=== PATIENT | female | born 1990 | race Caucasian/White ===

== ENCOUNTER 2018-05-04 09:17 | Inpatient (IN) | payer OTHER ==
[2018-05-04] MEDS ORDERED: ACETAMINOPHEN 325 MG TABLET (FP) PO ONE (10:18)
[2018-05-04] MEDS ORDERED: SODIUM CHLORIDE 1,000 ML IV STA ×2 (10:18→17:16)
--- NOTE | 2018-05-04 10:27 | PDOC ---
History of Present Illness - General Chief Complaint: Pain Stated Complaint: ABDOMINAL PAIN/FEVER Time Seen by Provider: 05/04/18 09:54 History Source: Patient - History of Present Illness Timing/Duration: reports: intermittent Quality: reports: severe Abdominal Pain Onset Location: reports: other (mid abd) Pain Radiation: reports: no radiation Past History - Past Medical History Allergies/Adverse Reactions: Allergies Allergy/AdvReac Type Severity Reaction Status Date / Time No Known Allergies Allergy Verified 05/04/18 09:28 Home Medications: Ambulatory Orders Acetaminophen [Tylenol -] 500 mg PO BID 05/04/18 Ciprofloxacin HCl [Cipro] 500 mg PO BID 05/04/18 Famotidine [Pepcid] 40 mg PO DAILY 05/04/18 COPD: No - Reproductive History Is Patient Now?: No (#): 2 Para: 0 Cervical CA: No Dysfunctional Uterine Bleeding: No Ectopic : No Endometrial CA: No Polycystic Ovaries: No Therapeutic (s) & number: No Tubal Ligation: No Spontaneous : 2 - Suicide/Smoking/Psychosocial Hx Smoking History: Never smoked Review of Systems - Review of Systems Constitutional: Yes: Fever Respiratory: No: Cough, Shortness of Breath Cardiac (ROS): No: Chest Pain ABD/GI: Yes: Constipated, Abdominal cramping. No: Blood Streaked Bowels, Diarrhea, Nausea, Rectal Bleeding, Vomiting : No: Burning, Dysuria, Discharge, Flank Pain, Hematuria *Physical Exam - Vital Signs Last Vital Signs Temp Pulse Resp BP Pulse Ox 100.0 F H 134 H 20 107/61 98 05/04/18 09:25 05/04/18 09:25 05/04/18 09:25 05/04/18 09:25 05/04/18 09:25 - Physical Exam General Appearance: Yes: Appropriately Dressed. No: Apparent Distress HEENT: positive: Normal Voice Neck: positive: Supple Respiratory/Chest: negative: Respiratory Distress Cardiovascular: positive: Tachycardia Female Pelvic Exam: positive: cervical os closed, discharge (mod amount milky white dc, no odor), adnexal tenderness (?minimal ttp to L adnexa). negative: CMT Gastrointestinal/Abdominal: positive: Normal Bowel Sounds, Soft. negative: Tender, Distended, Guarding, Rebound Musculoskeletal: negative: CVA Tenderness Integumentary: positive: Dry, Warm Neurologic: positive: Fully Oriented, Alert, Normal Mood/Affect ED Treatment Course - LABORATORY CBC & Chemistry Diagram: 05/04/18 10:34 05/04/18 10:34 - RADIOLOGY Radiology Studies Ordered: Category Date Time Status ABDOMEN & PELVIS CT WITH CONTR [CT] Stat CT Scan 05/04/18 10:18 Ordered Medical Decision Making - Medical Decision Making 05/04/18 10:22 27-year-old female, denies any past medical history, here with abdominal pain and fever. Patient states she started having mid bilateral abdominal pain that started 2 months ago while she was vacationing in the [place]. Also had a fever for 102 then. States she was seen in the ER in the [facility] and given medication for the fever, but states she did not have any blood work or imaging done in ER and no clear diagnosis. Patient states since then she has continued to have similar pain that patient describes as both pressure and "like someone sticking me from the inside". Denies any acute change in her bowel movements, but states she suffers from chronic constipation and only move her bowels once every several days. No bright red blood per rectum, melena or diarrhea. Patient also denies any nausea, vomiting, dysuria, vaginal discharge or odor. States pain worsened yesterday and was seen at [facility] and found to have fever of 102. Had negative blood work and urine, but started on Cipro for unclear reasons per patient and has since taken 2 doses. Also given prescription for Pepcid and Tylenol. States she was feeling a little better when she left ER yesterday afternoon but last night abd pain returned w/ chills and decided to come back to the ED today See exam Intermittent abd pain w/ fever x 2 month s/p neg w/u in [facility] yesterday but on cipro for ? reasons per pt, no imaging done yesterday Low grade fever w/ tachycardia today w/ benign abd -tylenol -IVF -labs -CT 05/04/18 13:46 Leukocytosis of 16, rest of labs and UA otherwise neg.CT a/p negative for any signs of acute infection with possible tiny non-obstructive right renal stone and focal low attenuation density in the left hepatic lobe that may need ultrasound for further evaluation. Labs and CT report discussed with patient who continues to complain of pain. Morphine in progress. After further history taking, patient now admits that she was admitted and treated for PID at [facility] 2 years ago with chlamydia on culture. Is sexually active with longtime male partner. States she presented very similarly with prior PID but that sxs more severe this time. Denies vag discharge, odor at this time. Will perform pelvic exam and send patient for ultrasound at this time 05/04/18 14:40 Pelvic exam w/ ? minimal tenderness to palpation to left adnexa. There is also moderate amount of milky white discharge. Patient continues to complain of mid abdominal pain despite 2mg of morphine in ER. Pelvic ultrasound still pending at this time. Anticipate posible admission and tx for PID. Cefoxitin and doxy in progress 05/04/18 18:15 US RUQ/pelvic unremarkable. On reassessment, patient states pain has somewhat improved but still present and feels like fever is returning. Repeat vitals in progress. Case discussed with Dr. Roy who agrees with admission at this time with treatment for possible PID given no other obvious source for fever or leukocytosis, and based on history of hx 05/04/18 18:32 Case d/w admitting team and patient admitted. Team requesting NEUROPSYCHOLOGY DIVISION CHIEF consult *DC/Admit/Observation/Transfer Diagnosis at time of Disposition: Abdominal pain Qualifiers: Abdominal location: unspecified location Qualified Code(s): R10.9 - Unspecified abdominal pain Fever Qualifiers: Fever type: unspecified Qualified Code(s): R50.9 - Fever, unspecified - Discharge Dispostion Condition at time of disposition: Fair Decision to Admit order: Yes - Referrals - Patient Instructions - Post Discharge Activity
[2018-05-04 10:47] LABS: HCG,QUALITATIVE URINE Negative
[2018-05-04 10:49] LABS: BASO % 0.1 % (0-2.0); HEMATOCRIT 37.4 % (32.4-45.2); HEMOGLOBIN 12.5 GM/dL (10.7-15.3); LYMPH % 4.4 % (8-40); MCHC 33.5 g/dl (32.0-36.0); MEAN CELL VOLUME 89.6 fl (80-96); MEAN PLT VOLUME 7.3 fl (7.5-11.1); MONO % 13.3 % (3.8-10.2); NEUT % 82.2 % (42.8-82.8); PLATELET COUNT 299 K/MM3 (134-434); RBC 4.17 M/mm3 (3.60-5.2); RDW 12.9 % (11.6-15.6); WHITE BLOOD COUNT 16.2 K/mm3 (4.0-10.0)
[2018-05-04 10:51] LABS: URINE APPEARANCE CLEAR; URINE BILIRUBIN NEGATIVE (<2.0 mg/dL); URINE COLOR LTYELLOW; URINE GLUCOSE (UA) NEGATIVE (NEGATIVE); URINE KETONE 1+ (NEGATIVE); URINE LEUK ESTERASE TRACE (NEGATIVE); URINE NITRITE NEGATIVE (NEGATIVE); URINE PROTEIN NEGATIVE (NEGATIVE); URINE UROBILINOGEN NEGATIVE mg/dL (0.2-1.0)
[2018-05-04] MEDS ORDERED: ACETAMINOPHEN 325 MG TABLET (FP) ONE ×2 (10:58→19:35)
[2018-05-04 11:00] LABS: EPI CELLS RARE /HPF (FEW); URINE MUCUS RARE
[2018-05-04 11:10] LABS: ALBUMIN 3.3 g/dl (3.4-5.0); ALK PHOS 84 U/L (45-117); ANION GAP 6 MMOL/L (8-16); BILIRUBIN,TOTAL 0.5 mg/dL (0.2-1.0); BLOOD UREA NITROGEN 8 mg/dL (7-18); CALCIUM 8.5 mg/dL (8.5-10.1); CHLORIDE 105 mmol/L (98-107); CO2 26 mmol/L (21-32); CREATININE 0.7 mg/dL (0.55-1.02); GLUCOSE,RANDOM 98 mg/dL (74-106); LIPASE 101 U/L (73-393); POTASSIUM 3.9 mmol/L (3.5-5.1); SGOT/AST 12 U/L (15-37); SGPT/ALT 14 U/L (12-78); SODIUM 137 mmol/L (136-145); TOT PROT 7.3 g/dl (6.4-8.2)
[2018-05-04] MEDS ORDERED: morphine CARPU-JECT 4 MG/1 ML DISP.SYRIN IVPUSH ONE ×2 (13:36→14:41)
[2018-05-04] MEDS ORDERED: MORPHINE SULFATE 2 MG/ML VIAL ONE (13:37)
[2018-05-04] MEDS ORDERED: CEFOXITIN SODIUM 2 GM in DEXTROSE 5%-WATER - 100 ML IVPB ONE (14:42)
[2018-05-04] MEDS ORDERED: DOXYCYCLINE HYCLATE 100 MG CAPSULE PO ONE ×2 (14:43→17:16)
[2018-05-04] MEDS ORDERED: IBUPROFEN 400 MG TABLET (FP) PO ONE ×3 (18:45→19:26)
--- NOTE | 2018-05-04 19:21 | PDOC ---
*Physical Exam - Vital Signs Last Vital Signs Temp Pulse Resp BP Pulse Ox 102.1 F H 130 H 18 110/54 99 05/04/18 18:24 05/04/18 18:24 05/04/18 18:24 05/04/18 18:24 05/04/18 18:24 ED Treatment Course - LABORATORY CBC & Chemistry Diagram: 05/04/18 10:34 05/04/18 10:34 - ADDITIONAL ORDERS Additional order review: Laboratory Results 05/04/18 05/04/18 10:34 10:21 Sodium 137 Potassium 3.9 Chloride 105 Carbon Dioxide 26 Anion Gap 6 L BUN 8 Creatinine 0.7 Creat Clearance w eGFR > 60 Random Glucose 98 Calcium 8.5 Total Bilirubin 0.5 AST 12 L ALT 14 Alkaline Phosphatase 84 Total Protein 7.3 Albumin 3.3 L Lipase 101 Urine Color Ltyellow Urine Appearance Clear Urine pH 5.0 Ur Specific [place] 1.013 Urine Protein Negative Urine Glucose (UA) Negative Urine Ketones 1+ H Urine Blood 1+ H Urine Nitrite Negative Urine Bilirubin Negative Urine Urobilinogen Negative Ur Leukocyte Esterase Trace Urine WBC (Auto) 7 Urine RBC (Auto) 2 Ur Epithelial Cells Rare Urine Mucus Rare Urine HCG, Qual Negative 05/04/18 10:34 RBC 4.17 MCV 89.6 MCHC 33.5 RDW 12.9 MPV 7.3 L Neutrophils % 82.2 Lymphocytes % 4.4 L Monocytes % 13.3 H Eosinophils % 0.0 Basophils % 0.1 - RADIOLOGY Radiology Studies Ordered: Category Date Time Status ABDOMEN & PELVIS CT WITH CONTR [CT] Stat CT Scan 05/04/18 10:18 Completed ABDOMEN US -LIMITED [US] Stat Ultrasound 05/04/18 13:35 Completed PELVIS(OTHER) US [US] Stat Ultrasound 05/04/18 13:44 Completed TRANSVAGINAL ULTRASOUND US [US] Stat Ultrasound 05/04/18 16:03 Completed - Medications Given in the ED: ED Medications Discontinued Medications Generic Name Dose Route Start Last Admin Trade Name Freq PRN Reason Stop Dose Admin Acetaminophen 650 mg 05/04/18 10:18 05/04/18 11:01 Tylenol - PO 05/04/18 10:19 650 mg ONCE ONE Administration Doxycycline Hyclate 100 mg 05/04/18 14:43 05/04/18 15:10 Vibramycin - PO 05/04/18 14:44 100 mg ONCE ONE Administration Sodium Chloride 1,000 mls @ 1,000 mls/hr 05/04/18 10:18 05/04/18 10:57 Normal Saline - IV 05/04/18 11:17 1,000 mls/hr ASDIR STA Administration Cefoxitin Sodium 2 gm/ 100 mls @ 200 mls/hr 05/04/18 14:42 05/04/18 15:15 Dextrose IVPB 05/04/18 15:11 200 mls/hr ONCE ONE Administration Protocol Sodium Chloride 1,000 mls @ 1,000 mls/hr 05/04/18 17:16 05/04/18 17:43 Normal Saline - IV 05/04/18 18:15 1,000 mls/hr ASDIR STA Administration Ibuprofen 800 mg 05/04/18 18:45 05/04/18 18:53 Motrin - PO 05/04/18 18:46 800 mg NOW ONE Administration Morphine Sulfate 2 mg 05/04/18 13:36 05/04/18 13:45 Morphine Injection - IVPUSH 05/04/18 13:37 2 mg ONCE ONE Administration Morphine Sulfate 2 mg 05/04/18 14:41 05/04/18 17:43 Morphine Injection - IVPUSH 05/04/18 14:42 Not Given ONCE ONE Oxycodone/Acetaminophen 1 combo 05/04/18 17:16 05/04/18 17:44 Percocet 5/325 - PO 05/04/18 17:17 1 combo ONCE ONE Administration Medical Decision Making - Medical Decision Making 05/04/18 19:17 Pt now admits that she was in [facility] [place] 2 months ago for bilateral breast implants. Now states breats might be more sore at this time and notice some redness to areola areas b/l. On exam, there is minimal erythema to areloa areas bilaterally with well-appearing surgical incisions without overt evidence of infection at this time. Admission team updated. Patient may need bilateral breast ultrasound to r/o abscess while inhouse *DC/Admit/Observation/Transfer Diagnosis at time of Disposition: Abdominal pain Qualifiers: Abdominal location: unspecified location Qualified Code(s): R10.9 - Unspecified abdominal pain Fever Qualifiers: Fever type: unspecified Qualified Code(s): R50.9 - Fever, unspecified - Discharge Dispostion Condition at time of disposition: Fair Decision to Admit order Date/Time: Decision to Admit Order Category Date Time Status Decision to Admit to Hospital Routine Admission 05/04/18 18:22 Active - Referrals - Patient Instructions - Post Discharge Activity
[2018-05-04] MEDS ORDERED: VANCOMYCIN 1,000 MG in DEXTROSE 5%-WATER - 250 ML IVPB ONE (20:30)
--- NOTE | 2018-05-04 21:03 | PN ---
Teaching Attending Note Name of Resident: Teri Ashford ATTENDING PHYSICIAN STATEMENT I saw and evaluated the patient. I reviewed the resident's note and discussed the case with the resident. I agree with the resident's findings and plan as documented. SUBJECTIVE: Patient is 27 year old woman with history of recent cosmetic breast and [place]os[place] presenting with abdominal pain and fever. Patient states she started having mid bilateral abdominal pain that started 2 months ago while she was vacationing in the [place]. Also had a fever for 102 then. States she was seen in the ER in the [facility] and given medication for the fever, but states she did not have any blood work or imaging done in ER and no clear diagnosis. Patient states since then she has continued to have similar pain that patient describes as both pressure and "like someone sticking me from the inside". Denies any acute change in her bowel movements, but states she suffers from chronic constipation and only move her bowels once every several days. No bright red blood per rectum, melena or diarrhea. Patient also denies any nausea, vomiting, dysuria, abnormal vaginal discharge or odor. States pain worsened yesterday and was seen at [facility] and found to have fever of 102. Had negative blood work and urine , but started on Cipro for unclear reasons per patient and has since taken 2 doses. Also given prescription for Pepcid and Tylenol. States she was feeling a little better when she left ER yesterday afternoon but last night abdominal pain returned with chills. LMP was April 13, 2018. OBJECTIVE: Alert Vital Signs Period Temp Pulse Resp BP Sys/Wright Pulse Ox Last 24 Hr 98.3 F-102.1 F 83-134 17-20 107-124/54-61 98-100 HEENT: No Jaundice, eye redness or discharge, PERRLA, EOMI. Normocephalic, atraumatic. External ears are normal and hearing is grossly intact. No nasal discharge. Neck: Supple, nontender. No palpable adenopathy or thyromegaly. No JVD Chest: Good effort. Incompletely healed scar under left breast. Clear to auscultation and percussion. Heart: Regular. No S3, rub or murmur Abdomen: Not distended, soft, tender right midabdominal area; no HSM. No rebound or guarding. Normoactive bowel sounds. Ext: Peripheral pulses intact. No leg edema. Skin: Warm and dry. No petechiae, rash or ecchymosis. Neuro: Alert. Oriented x3. CN 2-12 grossly intact. Sensation grossly intact in all four extremities and DTR are symmetric. Pelvic exam: Minimal tenderness to palpation to left adnexa. Moderate amount of milky white discharge. ASSESSMENT AND PLAN: 1. Sepsis of Unclear Source - CT shows hepatic and renal lesions. Blood cultures have been done. In addition to workup and treatment for possible PID, will get MRI with contrast to clarify hepatic and renal lesions (?abscess); ECHO (VIRGIL) to rule out endocarditis; culture of vaginal discharge; blood and stool test for parasites including amoeba and malaria; breast ultrasound. Continue on IV Cefoxitin, PO Doxycycline and IV Vancomycin. Consult GI, FACILITY SERVICE MANAGER and ID. Call [facility] for advisory. 2. DVT prophylaxis - Lovenox 40 mg SQ q 24 hours. 3. Advance directives - Full code
--- NOTE | 2018-05-04 22:39 | HP ---
CHIEF COMPLAINT: Fever, Abdominal pain PCP: Clinic in the [place] HISTORY OF PRESENT ILLNESS: Patient is a 27 year old male female with a PMHx of Pelvic Inflammatory disease 2-3 years ago who presents today complaining of a "crampy- like" periumbilical pain radiating to the right mid abdomen that started two months ago when she was in the [place]. Patient reported the pain as intermittent with a severity of 10/10 associated with fevers, chills, and vaginal odor. Patient reports she went to [facility] in January for a breast reduction and then started experiencing fevers, chills, abdominal pain with nonbloody diarrhea for over a week , two weeks after her surgery. She was then given medication in the [facility] with mild relief. In the last week patient reports the pain became constant, which prompted her to go to [facility] yesterday. She states blood work was done and "everything was negative" then discharged with Ciprofloxacin. Patient continued to have worsening fevers, chills, and abdominal pain in the last 24 hours, which prompted this hospital visit. Patient denies any chest pain, dysuria, frequency, urgency, hematuria, abnormal vaginal discharge, rash, joint pain. Patient denies drinking from any lakes or streams, swimming in lakes. Reports only drinking bottled water in [facility] Patient denies any sick contacts No IV drug use or Dental procedure with elective abortions 10 years ago. Regular menstrual cycles every 30 days for 3-5 days Age of menarche: 14 LNMP: 04/13/18 Sexually active with one partner and on no contraceptives 2 partners in the last year History of PID (2 years ago, (+) for chlamydia and treated with " one shot in the buttock") Last STD testing three weeks ago with normal results, according to patient ER course was notable for: (1) U/S, CT abdomen (2) Gonorrhea/Chlamydia blood test (3) Leukocytosis, fever, tachycardia Recent Travel: [facility] in January for 2 months PAST MEDICAL HISTORY: Pelvic Inflammatory Disease ( two years ago , positive for chlamydia) PAST SURGICAL HISTORY: Liposuction and breast implant (2 years ago) Breast reduction and breast lift (02/12/18) Social History: Single with no kids Lives with her mother 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 [place] Smoking: Denies Alcohol: Denies Drugs: Denies Family History: Grandmother- DM Allergies: No Known Allergies Allergy (Verified 05/04/18 09:28) HOME MEDICATIONS: Home Medications Medication Instructions Recorded Acetaminophen [Tylenol -] 500 mg PO BID 05/04/18 Ciprofloxacin HCl [Cipro] 500 mg PO BID 05/04/18 Famotidine [Pepcid] 40 mg PO DAILY 05/04/18 REVIEW OF SYSTEMS CONSTITUTIONAL: fever, chills Absent: diaphoresis, generalized weakness, malaise, loss of appetite, weight change HEENT: Absent: rhinorrhea, nasal congestion, throat pain, throat swelling, difficulty swallowing, mouth swelling, ear pain, eye pain, visual changes CARDIOVASCULAR: Absent: chest pain, syncope, palpitations, irregular heart rate, lightheadedness , peripheral edema RESPIRATORY: Absent: cough, shortness of breath, dyspnea with exertion, orthopnea, wheezing, stridor, hemoptysis GASTROINTESTINAL: abdominal pain, nausea, diarrhea Absent: abdominal distension, vomiting, constipation, melena, hematochezia GENITOURINARY: Vaginal odor Absent: dysuria, frequency, urgency, hesitancy, hematuria, flank pain, genital pain MUSCULOSKELETAL: Absent: myalgia, arthralgia, joint swelling, back pain, neck pain SKIN: Absent: rash, itching, pallor HEMATOLOGIC/IMMUNOLOGIC: Absent: easy bleeding, easy bruising, lymphadenopathy, frequent infections ENDOCRINE: Absent: unexplained weight gain, unexplained weight loss, heat intolerance, cold intolerance NEUROLOGIC: Absent: headache, focal weakness or paresthesias, dizziness, unsteady gait, seizure, mental status changes, bladder or bowel incontinence PSYCHIATRIC: Absent: anxiety, depression, suicidal or homicidal ideation, hallucinations. PHYSICAL EXAMINATION Vital Signs - 24 hr 05/04/18 05/04/18 05/04/18 09:25 11:09 18:24 Temperature 100.0 F H 99.5 F 102.1 F H Pulse Rate 134 H Pulse Rate [ 109 H 130 H Apical] Respiratory 20 17 18 Rate Blood Pressure 107/61 Blood Pressure 109/55 110/54 [Right Arm] O2 Sat by Pulse 98 98 99 Oximetry (%) 05/04/18 05/04/18 19:32 20:35 Temperature 98.3 F Pulse Rate Pulse Rate [ 83 Apical] Respiratory 18 Rate Blood Pressure Blood Pressure 124/61 [Right Arm] O2 Sat by Pulse 100 98 Oximetry (%) GENERAL: Awake, alert, and fully oriented, in no acute distress. HEAD: Normal with no signs of trauma. EYES: Pupils equal, round and reactive to light, extraocular movements intact, sclera anicteric, conjunctiva clear. No lid lag. EARS, NOSE, THROAT: Oropharynx clear without exudates. Moist mucous membranes. NECK: Normal range of motion, supple without lymphadenopathy, JVD, or masses. LUNGS: Breath sounds equal, clear to auscultation bilaterally. No wheezes, and no crackles. No accessory muscle use. HEART: Tachycardic with regular rhythm, normal S1 and S2 without murmur, rub or gallop. CHEST: 0.5x0.5 bilateral anterior wall surgical incision with no erythema or drainage BREASTS: Vertical incisions in bilateral lower breasts with no drainage and mild erythema, 1x1cm round surgical incision with erythema ABDOMEN: Soft, mild tenderness upon palpation of right mid-abdomen, not distended, normoactive bowel sounds, no guarding, no rebound, no masses. No hepatomegaly MUSCULOSKELETAL: Normal range of motion at all joints. No bony deformities or tenderness. No CVA tenderness. UPPER EXTREMITIES: No peripheral edema. LOWER EXTREMITIES: No peripheral edema. NEUROLOGICAL: Cranial nerves II-XII intact. Normal speech. Sensory intact, motor strength 5/5 bilaterally. No focal deficits. PSYCHIATRIC: Cooperative. Good eye contact. Appropriate mood and affect. SKIN: Warm,normal turgor, no rashes or lesions noted, normal capillary refill. Laboratory Results - last 24 hr 05/04/18 05/04/18 05/04/18 10:21 10:34 10:34 WBC 16.2 H RBC 4.17 Hgb 12.5 Hct 37.4 MCV 89.6 MCH 30.0 MCHC 33.5 RDW 12.9 Plt Count 299 MPV 7.3 L Absolute Neuts (auto) 13.3 H Neutrophils % 82.2 Lymphocytes % 4.4 L Monocytes % 13.3 H Eosinophils % 0.0 Basophils % 0.1 Nucleated RBC % 0 Sodium 137 Potassium 3.9 Chloride 105 Carbon Dioxide 26 Anion Gap 6 L BUN 8 Creatinine 0.7 Creat Clearance w eGFR > 60 Random Glucose 98 Calcium 8.5 Total Bilirubin 0.5 AST 12 L ALT 14 Alkaline Phosphatase 84 Total Protein 7.3 Albumin 3.3 L Lipase 101 Urine Color Ltyellow Urine Appearance Clear Urine pH 5.0 Ur Specific [place] 1.013 Urine Protein Negative Urine Glucose (UA) Negative Urine Ketones 1+ H Urine Blood 1+ H Urine Nitrite Negative Urine Bilirubin Negative Urine Urobilinogen Negative Ur Leukocyte Esterase Trace Urine WBC (Auto) 7 Urine RBC (Auto) 2 Ur Epithelial Cells Rare Urine Mucus Rare Urine HCG, Qual Negative HIV 1&2 Antibody Screen HIV P24 Antigen IMAGES: Abdominal U/S (05/04/18): 1.7cm nonspecific right hepatic lobe focus seen possibly representing a cyst with a small amount of internal debris. Correlate with contrast-enhanced MRI. Two small nonspecific right renal cortical foci identified on CT. Cannot be appreciated on sonography. Correlation with contrast-enhanced MRI. Transvaginal U/S (05/04/18): No sonographic evidence of tubo-ovarian abscess. Multiple bilateral subcentimeter ovarian follicles. Small amount of free fluid within the cul-de-sac CT Abdomen & Pelvis with contrast (05/04/18): Focal low attenuation density in medial segment of the left hepatic lobe, anteriorly, on axial image 40 measuring 1.8 x 1.1 cm for which correlation with U/S is needed to further assess. 2 focal low-attenuation density in the right kidney, of indeterminate consistency for which correlation with renal U/S is needed. Questionable tiny nonobstructing right renal lower pole stone measuring 2mm. Few diverticula in the sigmoid colon without evidence of acute diverticuli. Small amount of free fluid in the cul-de-sac which is nonspecific. Focal low-attenuation density in the right and left adnexal suggestive of ovaries and probable small cyst with a partially ruptured cyst in the right ovary measuring 2 x 1 cm. ASSESSMENT/PLAN: Patient is a 27 year old female who presented for fevers, chills, abdominal pain , and was found to have Sepsis. Patient admitted for further monitoring and management Sepsis of Unknown Source -Patient might be having unifying global symptoms due to CT images revealing several lesions in the liver, kidneys, and ovaries, will order MRI of abdomen with contrast for enhancement. Patient presents having subjective fevers and documented fever of 102 with tachycardia and leukocytosis >16. Will need to work up patient for possible Endocarditis and Pelvic inflammatory disease vs breast or liver/kidney abscess. -Patient recently had breast reduction and lift in [place] two months ago. Breast U/S to rule out abscess -ECHO ordered to r/o endocarditis (preferably VIRGIL) -Continue Cefoxitin 2gm Q6H and Doxycycline 100mg BID but will a dose of vancomycin 1000mg -Blood cultures pending -Chlamydia and Gonorrhea blood work pending. HIV negative -Tylenol PRN for fevers -Patient also reported nonbloody diarrhea that started the same time as her symptoms. With history of travel outside of the [place], will order Stool O&P and culture. Differentials may include Amoeba. -OBGYN consult placed -ID consult placed F/E/N -2L given in ED. Tolerating PO, no need for fluids -Electrolytes wnl -Regular diet Prophylaxis -EAM. Reports history of Clot on right arm. Lovenox 40mg SQ daily for DVT -No GI required Disposition -Full code -Awaiting labs, ECHO, will need to remain inpatient to rule out endocarditis Case discussed with Attending, Dr. Mukherjee. Teri Ashford [id number] Visit type - Emergency Visit Emergency Visit: Yes ED Registration Date: 05/04/18 Care time: The patient presented to the Emergency Department on the above date and was hospitalized for further evaluation of their emergent condition. - New Patient This patient is new to me today: Yes Date on this admission: 05/04/18 - Critical Care Critical Care patient: No Hospitalist Screening - Colonoscopy Questionnaire Colonoscopy Questionnaire: Colonoscopy Questionnaire - Patient: 50 - 75 years old and never had a screening colonoscopy: No History of colon or rectal polyps, or CA: No History of IBD, Crohn's disease or UC: No History of abdominal radiation therapy as a child: No - Relative: 1 with colon or rectal CA, or polyps at age 60 or younger: No Colon or rectal CA diagnosed at age 45 or younger: No Multiple relatives with colon or rectal CA: No - Outcome: Screening Result: Negative Screen
[2018-05-04] MEDS: CEFOXITIN SODIUM 2 GM in DEXTROSE 5%-WATER - 100 ML IVPB SCH (23:00)
[2018-05-04] MEDS: ACETAMINOPHEN 325 MG TABLET (FP) PO PRN (23:26)
[2018-05-05] MEDS: DOXYCYCLINE INJECTION 100 MG in DEXTROSE 5%-WATER - 100 ML IVPB SCH ×3 (02:11→21:56)
[2018-05-05] MEDS: CEFOXITIN SODIUM 2 GM in DEXTROSE 5%-WATER - 100 ML IVPB SCH ×3 (03:35→12:40)
[2018-05-05] MEDS: ACETAMINOPHEN 325 MG TABLET (FP) PO PRN ×3 (04:56→21:25)
[2018-05-05 07:41] LABS: BASO % 0.2 % (0-2.0); EOS % 0.7 % (0-4.5); HEMATOCRIT 33.7 % (32.4-45.2); LYMPH % 9.6 % (8-40); MCH 29.4 pg (25.7-33.7); MCHC 32.7 g/dl (32.0-36.0); MEAN CELL VOLUME 90.1 fl (80-96); MEAN PLT VOLUME 7.8 fl (7.5-11.1); MONO % 19.3 % (3.8-10.2); NEUT % 70.2 % (42.8-82.8); PLATELET COUNT 232 K/MM3 (134-434); RBC 3.74 M/mm3 (3.60-5.2); WHITE BLOOD COUNT 12.4 K/mm3 (4.0-10.0)
[2018-05-05] MEDS ORDERED: PT OWN MED DRAWER 7, Y5N ONE ×5 (10:18→21:50)
[2018-05-05] MEDS: SENNOSIDES 8.6MG TABLET (FP) PO SCH ×2 (10:22→21:25)
[2018-05-05] MEDS: DOCUSATE SODIUM 100 MG CAPSULE (FP) PO SCH (10:22)
[2018-05-05] MEDS: ENOXAPARIN NA (PORCINE) 40 MG/0.4 ML DISP.SYRIN SQ SCH (10:22)
[2018-05-05] MEDS: SODIUM CHLORIDE 1,000 ML IV SCH (10:34)
--- NOTE | 2018-05-05 11:45 | CON.GI ---
Consult Consult Specialty:: GI Reason for Consultation:: abdomina pain x 2 months - History of Present Illness History of Present Illness: Chart reviewed. Event noted. Pt reports acute onset nausea, vomiting, diarrhea and fever after visiting [place] [facility] [place] 2 [place] ago. [place] return to the [place], the above symptoms have resolved, however has mild, generalized abdominal pain to this day. Worse worth with coughing, moving around and stranding abdominal wall muscles. No changes with and w/o eating. No prior history of PUD, gastritis, of GERD. Never had EGD, or colonoscopy. At base line with bms - constipation, however not taking anything for bms at home. No fever, chills, nausea, vomiting, jaundice, melena, hematochezia, hematemesiss, or weight loss in the last 12 month. No significant GI family history. MRI - simple hepatic cyst. r/o pyelonephritis US liver - no cholelithiasis, choledocolithiasis US transvaginal - follicles, no tubo-ovarian abbesses CT - sigmoid divertculosis - History Source History Provided By: Patient, Medical Record, Transfer Record - Past Medical History ...LMP: 04/13/18 ...: No - Alcohol/Substance Use Hx Alcohol Use: No - Smoking History Smoking history: Never smoked Have you smoked in the past 12 months: No Home Medications - Allergies Allergies/Adverse Reactions: Allergies Allergy/AdvReac Type Severity Reaction Status Date / Time No Known Allergies Allergy Verified 05/04/18 09:28 - Home Medications Home Medications: Ambulatory Orders Acetaminophen [Tylenol -] 500 mg PO BID 05/04/18 Ciprofloxacin HCl [Cipro] 500 mg PO BID 05/04/18 Famotidine [Pepcid] 40 mg PO DAILY 05/04/18 Family Disease History - Family Disease History Family History: Unremarkable Review of Systems Findings/Remarks: as per HPI, ED, H&P Physical Exam-GI Vital Signs: Vital Signs Temperature 97.7 F 05/05/18 06:57 Pulse Rate 84 05/05/18 06:57 Respiratory Rate 20 05/05/18 06:57 Blood Pressure 98/56 05/05/18 06:57 O2 Sat by Pulse Oximetry (%) 98 05/05/18 03:00 Constitutional: Yes: Well Nourished, No Distress, Calm Eyes: Yes: Conjunctiva Clear HENT: Yes: Atraumatic Neck: Yes: Supple Cardiovascular: Yes: Regular Rate and Rhythm Respiratory: Yes: Regular ...Auscultate: Yes: Normoactive Bowel Sounds ...Palpate: Yes: Soft. No: Firm/Rigid, Guarding, Mass, Tenderness, Tenderness, Epigastium, Tenderness, Rebound Neurological: Yes: Alert, Oriented Labs: CBC, BMP 05/05/18 06:30 05/04/18 10:34 Laboratory Last Values WBC 12.4 K/mm3 (4.0-10.0) H 05/05/18 06:30 RBC 3.74 M/mm3 (3.60-5.2) 05/05/18 06:30 Hgb 11.0 GM/dL (10.7-15.3) 05/05/18 06:30 Hct 33.7 % (32.4-45.2) 05/05/18 06:30 MCV 90.1 fl (80-96) 05/05/18 06:30 MCH 29.4 pg (25.7-33.7) 05/05/18 06:30 MCHC 32.7 g/dl (32.0-36.0) 05/05/18 06:30 RDW 13.0 % (11.6-15.6) 05/05/18 06:30 Plt Count 232 K/MM3 (134-434) D 05/05/18 06:30 MPV 7.8 fl (7.5-11.1) 05/05/18 06:30 Absolute Neuts (auto) 8.7 K/mm3 (1.5-8.0) H 05/05/18 06:30 Neutrophils % 70.2 % (42.8-82.8) 05/05/18 06:30 Lymphocytes % 9.6 % (8-40) D 05/05/18 06:30 Monocytes % 19.3 % (3.8-10.2) H 05/05/18 06:30 Eosinophils % 0.7 % (0-4.5) D 05/05/18 06:30 Basophils % 0.2 % (0-2.0) 05/05/18 06:30 Nucleated RBC % 0 % (0-0) 05/05/18 06:30 Sodium 137 mmol/L (136-145) 05/04/18 10:34 Potassium 3.9 mmol/L (3.5-5.1) 05/04/18 10:34 Chloride 105 mmol/L (98-107) 05/04/18 10:34 Carbon Dioxide 26 mmol/L (21-32) 05/04/18 10:34 Anion Gap 6 MMOL/L (8-16) L 05/04/18 10:34 BUN 8 mg/dL (7-18) 05/04/18 10:34 Creatinine 0.7 mg/dL (0.55-1.02) 05/04/18 10:34 Creat Clearance w eGFR > 60 (>60) 05/04/18 10:34 Random Glucose 98 mg/dL (74-106) 05/04/18 10:34 Calcium 8.5 mg/dL (8.5-10.1) 05/04/18 10:34 Total Bilirubin 0.5 mg/dL (0.2-1.0) 05/04/18 10:34 AST 12 U/L (15-37) L 05/04/18 10:34 ALT 14 U/L (12-78) 05/04/18 10:34 Alkaline Phosphatase 84 U/L (45-117) 05/04/18 10:34 Total Protein 7.3 g/dl (6.4-8.2) 05/04/18 10:34 Albumin 3.3 g/dl (3.4-5.0) L 05/04/18 10:34 Lipase 101 U/L (73-393) 05/04/18 10:34 Urine Color Ltyellow 05/04/18 10:21 Urine Appearance Clear 05/04/18 10:21 Urine pH 5.0 (5.0-8.0) 05/04/18 10:21 Ur Specific [place] 1.013 (1.001-1.035) 05/04/18 10:21 Urine Protein Negative (NEGATIVE) 05/04/18 10:21 Urine Glucose (UA) Negative (NEGATIVE) 05/04/18 10:21 Urine Ketones 1+ (NEGATIVE) H 05/04/18 10:21 Urine Blood 1+ (NEGATIVE) H 05/04/18 10:21 Urine Nitrite Negative (NEGATIVE) 05/04/18 10:21 Urine Bilirubin Negative (<2.0 mg/dL) 05/04/18 10:21 Urine Urobilinogen Negative mg/dL (0.2-1.0) 05/04/18 10:21 Ur Leukocyte Esterase Trace (NEGATIVE) 05/04/18 10:21 Urine WBC (Auto) 7 /hpf (3-5) 05/04/18 10:21 Urine RBC (Auto) 2 /hpf (0-3) 05/04/18 10:21 Ur Epithelial Cells Rare /HPF (FEW) 05/04/18 10:21 Urine Mucus Rare 05/04/18 10:21 Urine HCG, Qual Negative 05/04/18 10:21 HIV 1&2 Antibody Screen Negative 05/04/18 14:08 HIV P24 Antigen Negative 05/04/18 14:08 Imaging - Results Cat Scan: Report Reviewed Ultrasound: Report Reviewed MRI: Report Reviewed Problem List - Problems (1) Abdominal pain Code(s): R10.9 - UNSPECIFIED ABDOMINAL PAIN Qualifiers: Abdominal location: unspecified location Qualified Code(s): R10.9 - Unspecified abdominal pain Assessment/Plan A 27F with chronic abdominal pain, which appears to be muscular in nature. R/o IBS, connective tissue disease, renal etiology. Not anemic, normal liver chemistry, ALP, bili. No diarrhea, nausea, vomiting, dysphagia, odynophia, melena, hematochezia or weight loss. GI imaging has been unrevealing. Recommend: Diet as tolerated. Miralax bid-tid PRN, VALERY, CRP, ESR. Observe
--- NOTE | 2018-05-05 12:22 | PN ---
Progress Note (short form) - Note Progress Note: ID Consult dictated Fever ? source No evidence for surgical wound infections Await c/s Continue cefoxitin/ doxycycline
--- NOTE | 2018-05-05 13:20 | CONS ---
DATE OF CONSULTATION: 05/05/2018 HISTORY OF PRESENT ILLNESS: The patient is a 27-year-old female who is evaluated for fever. The patient was admitted to the hospital on May 04, 2018 with complaints of abdominal pain and fever. She had apparently been seen in the emergency room at [facility] approximately one day prior to admission, where she was febrile. She was told that the workup was unrevealing. She was prescribed ciprofloxacin which she took several doses of. She now returns with increased abdominal pain and recurrent fever. The patient denies any nausea or vomiting. She is chronically constipated. She denies diarrhea. No complaints of dysuria or hematuria. Of note, she returned from the [facility] approximately two months ago after undergoing breast augmentation surgery. She said that while there, she had a self-limited fever which resolved. Her course was also complicated by a possible blood clot in the left upper extremity. She denies any purulent drainage from the breast wounds. She denies any vaginal discharge PAST MEDICAL HISTORY: Positive for PID in 2016. She was treated for chlamydia. PAST SURGICAL HISTORY: Status post bilateral breast augmentation surgery in February 2018 in the [facility]. History of liposuction in the past. ALLERGIES: No known allergies. MEDICATIONS: Tylenol, ciprofloxacin, Pepcid. SOCIAL HISTORY: She is single. She is sexually active with one partner. She denies risk factors for HIV. Her HIV test here is negative. She denies tobacco, alcohol or illicit drug use. LABORATORY DATA: White count 12.4 (16.2 on admission), hematocrit 33.7, platelet count 232, creatinine 0.7. Liver enzymes within normal limits. HIV testing is negative. Chlamydia and gonorrhea screens are pending. A urinalysis showed 7 white cells. A CAT scan of the abdomen and pelvis showed what appeared to be cysts in the liver and kidneys. An MRI of the abdomen shows nonspecific areas of hypo-enhancement in the right upper and lower renal pole, possibly representing nephritis. No evidence of abscess. PHYSICAL EXAMINATION: General: She is awake and alert. The patient was examined with Dr. Levi, plastic surgeon. Vital Signs: T-max 102.1, pulse 84 and regular, blood pressure 98/56, respiratory rate 20 per minute. HEENT:: Sclerae anicteric. Heart: Heart sounds S1, S2. Lungs: Clear. Abdomen: Soft and nontender. The surgical wound from her abdominal liposuction appears to be well healed. No CVA tenderness. Breasts: On examination of the breast surgical wounds, there is an open wound present beneath the left breast. There is no purulent drainage. There are small, superficial wounds present around the areolas which again have no purulent drainage. No erythema is noted. Extremities: Negative for edema. IMPRESSION: 1. Fever of possible genitourinary source. 2. No evidence of surgical wound infections. PLAN: Considerations include acute right pyelonephritis or pelvic inflammatory disease. There is no evidence to suggest surgical wound infections at this time. 1. Await cultures. 2. Await chlamydia and gonorrhea probe. 3. Continue empiric antibiotic coverage with doxycycline and cefoxitin. Thank you for the kind referral. NICHOL GILLESPIE M.D. [id number]
--- NOTE | 2018-05-05 13:42 | PN ---
Teaching Attending Note Name of Resident: Cheryl Carreon ATTENDING PHYSICIAN STATEMENT I saw and evaluated the patient. I reviewed the resident's note and discussed the case with the resident. I agree with the resident's findings and plan as documented with exceptions below. SUBJECTIVE: Patient seen and examined. still with abdominal pain, denies any new discharge or fevers. Tolerating diet. OBJECTIVE: Vital Signs Period Temp Pulse Resp BP Sys/Wright Pulse Ox Last 24 Hr 97.6 F-102.1 F 83-130 16-20 93-124/50-61 98-100 Intake & Output 05/02/18 05/03/18 05/04/18 05/05/18 23:59 23:59 23:59 23:59 Intake Total 2100 500 Balance 2100 500 Weight 164 lb General: sitting in bed in no acute distress Chest:C TAB, no rales or wheezing Abdomen:Soft, ND, no voluntary or involuntary guarding or rigidity, tenderness in RMQ/RLQ/RUQ, though inconsistent exam on repeat palpation, neg Cortes's sign , Initially reported right sided pain and tenderness, then intermittent rebound generalized abdomen, tenderness in lower abdominal region. No clinical concerns of acute abdomen, no CVA tenderness Extremities: no edema Breast : bilateral wound well healing and clean, no erythema or discharge, no breast tenderness noted Home Medications Medication Instructions Recorded Acetaminophen [Tylenol -] 500 mg PO BID 05/04/18 Ciprofloxacin HCl [Cipro] 500 mg PO BID 05/04/18 Famotidine [Pepcid] 40 mg PO DAILY 05/04/18 Active Medications Acetaminophen (Tylenol -) 650 mg PO Q4H PRN PRN Reason: FEVER Last Admin: 05/05/18 11:16 Dose: 650 mg Docusate Sodium (Colace -) 100 mg PO DAILY [facility] Last Admin: 05/05/18 10:22 Dose: 100 mg Enoxaparin Sodium (Lovenox -) 40 mg SQ DAILY [facility] Last Admin: 05/05/18 10:22 Dose: 40 mg Doxycycline Hyclate 100 mg/ (Dextrose) 100 mls @ 100 mls/hr IVPB BID [facility] Last Admin: 05/05/18 12:08 Dose: 100 mls/hr Sodium Chloride (Normal Saline -) 1,000 mls @ 100 mls/hr IV ASDIR [facility] Last Admin: 08/29/18 10:34 Dose: 100 mls/hr Cefoxitin Sodium 2 gm/ (Dextrose) 100 mls @ 200 mls/hr IVPB Q6H-IV SHIKHA; Protocol Ketorolac Tromethamine (Toradol Injection -) 15 mg IVPUSH Q6H PRN PRN Reason: PAIN LEVEL 7 - 10 Stop: 05/10/18 13:24 Senna (Senna -) 1 tab PO BID SHIKHA Last Admin: 05/05/18 10:22 Dose: 1 tab Laboratory Results - last 24 hr 05/04/18 05/05/18 14:08 06:30 WBC 12.4 H RBC 3.74 Hgb 11.0 Hct 33.7 MCV 90.1 MCH 29.4 MCHC 32.7 RDW 13.0 Plt Count 232 D MPV 7.8 Absolute Neuts (auto) 8.7 H Neutrophils % 70.2 Lymphocytes % 9.6 D Monocytes % 19.3 H Eosinophils % 0.7 D Basophils % 0.2 Nucleated RBC % 0 HIV 1&2 Antibody Screen Negative HIV P24 Antigen Negative Microbiology 05/04/18 10:34 Urine - Urine Clean Catch Urine Culture - Final NO GROWTH OBTAINED 05/05/18 02:30 Blood - Peripheral Venous Blood Parasites Smear - Final 05/04/18 10:34 Blood - Peripheral Venous Blood Culture - Preliminary NO GROWTH OBTAINED AFTER 24 HOURS, INCUBATION TO CONTINUE FOR 4 DAYS. 05/04/18 10:34 Blood - Peripheral Venous Blood Culture - Preliminary NO GROWTH OBTAINED AFTER 24 HOURS, INCUBATION TO CONTINUE FOR 4 DAYS. ASSESSMENT AND PLAN: 27 yof with recent Breast augmentation followed by breast reduction/liposuction surgery in [place], comes with 2months of intermittent abdominal pain, fevers. -Sepsis, ?PID, low suspicion for pelvic abscess or concerns -Simple hepatic cyst -Renal hypoenhancement areas, unlikely pyelonephritis given neg urinalysis and no urinary symptoms -Recent breast augmentation followed by breast reduction/liposuction Plan: Vague abdominal exam. Discussed with Dr. Gardner, continue abx and follow up recs. ID input noted. Cefoxitin/doxycycline day 2. Follow up blood cx, Chlamydia/GC probe. Blood parasite smear neg. Discussed with Dr. Riggins, appendix normal. Surgery input Dr. Maldonado. Dr. Levi input for surgical wound care. Follow up breast US but low suspicion for post op infectious process GI input noted. Check Renal US to assess areas. outpatient follow up imaging. supportive care with IVF, pain control toradol. DVTPPX lovenox Dispo pending clinical improvement. Plan discussed with patient in detail, all questions answered.
--- NOTE | 2018-05-05 14:06 | CONS ---
DATE OF CONSULTATION: DATE OF DICTATION: 05/05/2018 REQUESTING PHYSICIAN: Tien Mcpherson MD REASON FOR CONSULTATION: Recent cosmetic surgery in [place]. The patient is now postoperative experiencing fever and pain in the abdomen. HISTORY: 27-year-old female seen on Consultation at [facility] for unknown fever stomach pains. History is relevant recent surgeries on both breasts Bilateral Augmentation /Mastopexy/Breast lift performed in [facility] aprox 2 months ago. She had another procedure at the same time: liposuction. Postoperatively, she started experiencing pain in the upper abdomen, she mentioned this to her surgeon and was started on antibiotics. (?) does not know The patient mentions her breast size is now 36C. Past history : is relevant for a similar procedure done over a year ago. She under went similar procedure Bilateral Breast Augmentation, but she found the implants to be too large as well had a problem in left breast, and was told the implant had "Flipped/bottom out" . The patient does not recall the size of the breast implants placed, neither she knows type or make of the implanted devices. PAST MEDICAL HISTORY: Relevant as mentioned for a similar procedure a year ago. SOCIAL HISTORY: Nonsmoker. PHYSICAL EXAMINATION: General: Patient seen in the hospital. Vital Signs: Temperature 98.3. It had been 102. Pulse 83. Respirations 17. Blood pressure 124/54. Pulse oximetry 98. HEENT: Pupils equal and reacting. Normocephalic and atraumatic. Neck: Supple, nontender. Abdomen: Not distended. Mild tenderness in the epigastric area. No rebound, guarding, or pain. Breasts: Bilateral breasts showing with recent healing scars. Scars are pink and more visible at the "T-Junction " discharge not noted. Both nipple and areola good color and shape. Circulation intact. Small areas along the T junctions where possibly she Mild erythema along suture lines, no induration, not warm . No induration. Mild tender on Medial aspects of nipple/areola. Breasts both sides feel soft. No definite mass or abscess palpable. Circulation to the rest of the Breast skin is intact. ASSESSMENT AND PLAN: 1. Possible source of infection is kidney. 2. At the present, there is no discharge in both breasts. Breasts both feel normal. The patient is requested to get the required information of the type of implants, size of the implants, and make of the implants. 3. Continue with medical treatment for infection. Discussed with Dr. Meneses. She is on Cefoxitin and doxycycline. 4. At present, no need for removal of the implants. If she does not respond, and continues with fever and white count elevated , source of fever is not found than both implants may need removal , Culture obtained from the site. Patient Counselled: This has been explained to the patient. All questions were answered. ELEANOR LANG M.D. [id number] H[place]
--- NOTE | 2018-05-05 15:03 | EKG ---
Test Reason : Blood Pressure : / mmHG Vent. Rate : 107 BPM Atrial Rate : 107 BPM P-R Int : 128 ms QRS Dur : 078 ms QT Int : 312 ms P-R-T Axes : 056 053 023 degrees QTc Int : 416 ms SINUS TACHYCARDIA SEPTAL INFARCT , AGE UNDETERMINED ABNORMAL ECG NO PREVIOUS ECGS AVAILABLE Confirmed by ODELL CEVALLOS MD ([id number]) on 05/05/2018 3:02:58 PM Referred By: Confirmed By:ODELL CEVALLOS MD
[2018-05-05] MEDS: CEFOXITIN SODIUM 2 GM in DEXTROSE 5%-WATER 100 ML IVPB SCH ×2 (15:36→20:33)
[2018-05-05] MEDS: KETOROLAC TROMETHAMINE 15 MG/ML VIAL IVPUSH PRN (15:43)
--- NOTE | 2018-05-05 16:45 | ECHO ---
Name: BRENDA GARCIA Exam:Adult Echocardiogram Study Date: 05/05/2018 09:13 AM Age: 27 yrs Reason For Study: R/O Endocarditis Height: 63 in Weight: 164 lb BSA: 1.8 m2 MMode/2D Measurements & Calculations IVSd: 0.93 cm Ao root diam: 2.1 cm LVIDd: 3.8 cm LA dimension: 3.0 cm LVIDs: 2.2 cm LVPWd: 0.98 cm EDV(Teich): 61.6 ml ESV(Teich): 15.4 ml Doppler Measurements & Calculations MV E max yordy: 94.6 cm/sec TR max yordy: 231.2 cm/sec MV A max yordy: 71.8 cm/sec TR max P.4 mmHg MV E/A: 1.3 MV dec time: 0.21 sec Med Peak E' Yordy: 10.8 cm/sec PI Vmax: 105.9 cm/sec Med E/e': 8.8 Lat Peak E' Yordy: 16.0 cm/sec Lat E/e': 5.9 Procedure A two-dimensional transthoracic echocardiogram with color flow and Doppler was performed. Left Ventricle The left ventricular size, thickness and function are normal. The left ventricle is not well visualiz ed. The left ventricular ejection fraction is normal. Left Ventricular Filling pattern is normal for age. Reg ional wall motion abnormalities cannot be excluded due to limited visualization. Right Ventricle The right ventricle is not well visualized. Atria Normal left and right atrial size and function. The atrial septum is aneurysmal. Mitral Valve There is mild mitral valve thickening. There is no mitral valve stenosis. There is trace to mild mitr al regurgitation. Tricuspid Valve There is mild tricuspid valve thickening. There is no tricuspid stenosis. There is moderate tricuspid regurgitation. Right ventricular systolic pressure is normal. Aortic Valve The aortic valve is normal in structure and function. No hemodynamically significant valvular aortic stenosis. No aortic regurgitation is present. Pulmonic Valve The pulmonic valve is not well visualized. There is no pulmonic valvular stenosis. There is no pulmon ic valvular regurgitation. Great Vessels The aortic root is normal size. Pericardium/Pleura There is no pericardial effusion. Interpretation Summary The left ventricular ejection fraction is normal. The left ventricular size, thickness and function are normal There is trace to mild mitral regurgitation. There is moderate tricuspid regurgitation. Right ventricular systolic pressure is normal. The atrial septum is aneurysmal. The left ventricle is not well visualized. Regional wall motion abnormalities cannot be excluded due to limited visualization. Left Ventricular Filling pattern is normal for age. MD Prashant Kathleen 05/05/2018 02:20 PM
--- NOTE | 2018-05-05 17:17 | PN ---
Physical Exam: SUBJECTIVE: Patient seen and examined at bedside this morning. She has still been complaining of intermittent abdominal pain that is slightly relieved by Tylenol. She also reports no bowel movement for 1 week. OBJECTIVE: Vital Signs Period Temp Pulse Resp BP Sys/Wright Pulse Ox Last 24 Hr 97.6 F-102.1 F 83-130 16-20 93-124/50-66 93-100 GENERAL: The patient is awake, alert, and fully oriented, in no acute distress. HEAD: Normal with no signs of trauma. EYES: PERRLA, EOMI, sclera anicteric, conjunctiva clear. NECK: Trachea midline, full range of motion, supple. LUNGS: Breath sounds equal, clear to auscultation bilaterally. HEART: Regular rate and rhythm, S1, S2 without murmur, rub or gallop. ABDOMEN: Soft, +tenderness on RLQ, nondistended, normoactive bowel sounds. EXTREMITIES: 2+ pulses, warm, well-perfused, no edema. SKIN: Warm, dry, normal turgor, no rashes or lesions noted Breast exam (performed by Dr. Mcpherson): bilateral wound well healing and clean, no erythema or discharge, no breast tenderness noted. Laboratory Results - last 24 hr 05/05/18 06:30 WBC 12.4 H RBC 3.74 Hgb 11.0 Hct 33.7 MCV 90.1 MCH 29.4 MCHC 32.7 RDW 13.0 Plt Count 232 D MPV 7.8 Absolute Neuts (auto) 8.7 H Neutrophils % 70.2 Lymphocytes % 9.6 D Monocytes % 19.3 H Eosinophils % 0.7 D Basophils % 0.2 Nucleated RBC % 0 Active Medications Generic Name Dose Route Start Last Admin Trade Name Freq PRN Reason Stop Dose Admin Acetaminophen 650 mg 05/04/18 18:58 05/05/18 11:16 Tylenol - PO 650 mg Q4H PRN Administration FEVER Docusate Sodium 100 mg 05/05/18 10:00 05/05/18 10:22 Colace - PO 100 mg DAILY SHIKHA Administration Enoxaparin Sodium 40 mg 05/05/18 10:00 05/05/18 10:22 Lovenox - SQ 40 mg DAILY SHIKHA Administration Doxycycline Hyclate 100 mg/ 100 mls @ 100 mls/hr 05/04/18 22:00 05/05/18 12: 08 Dextrose IVPB 100 mls/hr BID SHIKHA Administration Sodium Chloride 1,000 mls @ 100 mls/hr 05/05/18 08:15 05/05/18 10:34 Normal Saline - IV 100 mls/hr ASDIR SHIKHA Administration Cefoxitin Sodium 2 gm/ 100 mls @ 200 mls/hr 05/05/18 15:00 05/05/18 15:36 Dextrose IVPB 200 mls/hr Q6H-IV SHIKHA Administration Protocol Ketorolac Tromethamine 15 mg 05/05/18 13:25 05/05/18 15:43 Toradol Injection - IVPUSH 05/10/18 13:24 15 mg Q6H PRN Administration PAIN LEVEL 7 - 10 Senna 1 tab 05/05/18 10:00 05/05/18 10:22 Senna - PO 1 tab BID SHIKHA Administration ASSESSMENT/PLAN: Patient is a 27 year old male female with a PMHx of Pelvic Inflammatory disease 2-3 years ago who presents today complaining of a "crampy- like" periumbilical pain radiating to the right mid abdomen that started two months ago when she was in the [place]. #Sepsis, etiology to be determined -Patient might be having unifying global symptoms due to CT images revealing several lesions in the liver, kidneys, and ovaries. -MRI of abdomen - non specific areas of hyperenhancement in right upper and right lower renal pole with corresponding restricted diffusion. Findings likely represent focal nephronia/nephritis and unlikely to represent an abscess. -Breast US done to rule out breast abscess - will await final read -ECHO -LVEF normal, trace mild MR, moderate TR -Continue Cefoxitin 2gm Q6H and Doxycycline 100mg BID on Day 2 -Blood and urine cultures negative for any growth. HIV negative -Toradol 15mg q6h PRN for pain. -Dr. Luna consult appreciated. -Dr. Meneses consult appreciated. -Dr. Hoff consult appreciated. #Constipation -patient reported not having bowel movements for 1 week. -Senna and Colace started #FEN -2L given in ED. Tolerating PO, no need for fluids -Electrolytes wnl, routine bmp monitoring -Regular diet #Prophylaxis -Lovenox 40mg SQ daily for DVT #Disposition -Full code Visit type - Emergency Visit Emergency Visit: Yes ED Registration Date: 05/04/18 Care time: The patient presented to the Emergency Department on the above date and was hospitalized for further evaluation of their emergent condition. - New Patient This patient is new to me today: Yes Date on this admission: 05/05/18 - Critical Care Critical Care patient: No
[2018-05-06] MEDS: KETOROLAC TROMETHAMINE 15 MG/ML VIAL IVPUSH PRN (00:13)
[2018-05-06] MEDS ORDERED: PT OWN MED DRAWER 7, Y5N ONE ×6 (01:17→20:44)
[2018-05-06] MEDS: CEFOXITIN SODIUM 2 GM in DEXTROSE 5%-WATER 100 ML IVPB SCH ×4 (02:39→20:53)
[2018-05-06] MEDS: SODIUM CHLORIDE 1,000 ML IV SCH ×2 (06:03→10:15)
[2018-05-06] MEDS ORDERED: INSULIN (NOVOLOG) ASPART 100 UNITS/ML 10ML VIAL ONE (06:49)
[2018-05-06 07:42] LABS: HEMOGLOBIN 11.6 GM/dL (10.7-15.3); RBC 3.91 M/mm3 (3.60-5.2)
[2018-05-06 08:02] LABS: ANION GAP 6 MMOL/L (8-16); BLOOD UREA NITROGEN 4 mg/dL (7-18); CALCIUM 8.2 mg/dL (8.5-10.1); CHLORIDE 109 mmol/L (98-107); CO2 24 mmol/L (21-32); CREATININE 0.6 mg/dL (0.55-1.02); GLUCOSE,RANDOM 81 mg/dL (74-106); POTASSIUM 3.9 mmol/L (3.5-5.1); SODIUM 139 mmol/L (136-145)
[2018-05-06 08:09] LABS: HEMATOCRIT 35.1 % (32.4-45.2); MCH 29.8 pg (25.7-33.7); MCHC 33.1 g/dl (32.0-36.0); MEAN CELL VOLUME 89.8 fl (80-96); MEAN PLT VOLUME 7.8 fl (7.5-11.1); PLATELET COUNT 287 K/MM3 (134-434); RDW 12.9 % (11.6-15.6); WHITE BLOOD COUNT 10.8 K/mm3 (4.0-10.0)
--- NOTE | 2018-05-06 08:14 | PN ---
Teaching Attending Note Name of Resident: Cheryl Carreon ATTENDING PHYSICIAN STATEMENT I saw and evaluated the patient. I reviewed the resident's note and discussed the case with the resident. I agree with the resident's findings and plan as documented with exceptions below. SUBJECTIVE: Patient seen and examined. abdominal pain improved. Some pain in lower left breast, fevers overnight. Overall feels better than admission. OBJECTIVE: Vital Signs Period Temp Pulse Resp BP Sys/Wright Pulse Ox Last 24 Hr 98.1 F-101 F 89-102 18-20 95-118/55-71 93-93 Intake & Output 05/03/18 05/04/18 05/05/18 05/06/18 23:59 23:59 23:59 23:59 Intake Total 2100 2550 700 Balance 2100 2550 700 Weight 164 lb General: ambulating in room, no acute distress Chest: CTAB, no rales or wheezing Abdomen: soft, minimal lower abdominal and armani-umbilical tenderness, no RLQ tenderness today, no voluntary or involuntary guarding or rigidity, positive bowel sounds Extremities: no edema Breast: Right breast, dressing clean, granulation tissue at 6 o clock position non tender, Left breast - granulation tissue 5-6 o clock position with some induration/tenderness in 5 o clock position, no erythema or discharge noted Active Medications Acetaminophen (Tylenol -) 650 mg PO Q4H PRN PRN Reason: FEVER Last Admin: 05/05/18 21:25 Dose: 650 mg Docusate Sodium (Colace -) 100 mg PO DAILY [facility] Last Admin: 05/05/18 10:22 Dose: 100 mg Enoxaparin Sodium (Lovenox -) 40 mg SQ DAILY [facility] Last Admin: 05/05/18 10:22 Dose: 40 mg Doxycycline Hyclate 100 mg/ (Dextrose) 100 mls @ 100 mls/hr IVPB BID [facility] Last Admin: 05/05/18 21:56 Dose: 100 mls/hr Sodium Chloride (Normal Saline -) 1,000 mls @ 100 mls/hr IV ASDIR [facility] Last Admin: 05/06/18 06:03 Dose: 100 mls/hr Cefoxitin Sodium 2 gm/ (Dextrose) 100 mls @ 200 mls/hr IVPB Q6H-IV [facility]; Protocol Last Admin: 05/06/18 02:39 Dose: 200 mls/hr Ketorolac Tromethamine (Toradol Injection -) 15 mg IVPUSH Q6H PRN PRN Reason: PAIN LEVEL 7 - 10 Stop: 05/10/18 13:24 Last Admin: 05/06/18 00:13 Dose: 15 mg Pantoprazole Sodium (Protonix -) 40 mg PO BID [facility] Polyethylene Glycol (Miralax (For Daily Use) -) 17 gm PO DAILY [facility] Senna (Senna -) 1 tab PO BID [facility] Last Admin: 05/05/18 21:25 Dose: 1 tab LUE Duplex neg for DVT. Breast US results noted 2D echo results reviewed, moderate TR LUE duplex neg for DVT ASSESSMENT AND PLAN: 27 yof with recent Breast augmentation followed by breast reduction/[place]os[place] surgery in [place], comes with 2months of intermittent abdominal pain, fevers. -Sepsis, From ?Left breast infection/fluid collection vs PID -Simple hepatic cyst -Renal hypoenhancement areas, unlikely pyelonephritis given neg urinalysis and no urinary symptoms -Recent breast augmentation followed by breast reduction/liposuction Plan: Tmax 101. Cefoxitin/doxycycline day 2. WBC improved Breast US noted, patient tender in the area of fluid collection . Discuss with Dr. Levi, ?I&D vs surgical removal, will follow up. Will hold lovenox for now. Blood cx/smear exam neg so far. 2D echo noted. Follow up Chlamydia/GC probe. HIV screen neg. Patient seen by Dr. Luna today, discussed, no acute concerns as discussed with him, recommend antibiotics and monitoring. No indication for surgical intervention as discussed with him. ID input noted. Discussed with Dr. Riggins, appendix normal. Surgery input Dr. Maldonado appreciated. GI input noted. Renal US normal. Outpatient follow up imaging. Supportive care with IVF, pain control toradol/Tylenol. Add protonix. DVTPPX hold lovenox for now in case need intervention for left breast fluid. Dispo pending clinical improvement. Plan discussed with patient in detail, all questions answered.
--- NOTE | 2018-05-06 09:21 | CONSULT ---
- Consultation REQUESTING PROVIDER: Vida BERRIOS CONSULT REQUEST: We have been asked to surgically evaluate this patient for ? abdominal pain ? PCP:Tien Mcpherson MD HISTORY OF PRESENT ILLNESS: 27 y/o female presented w/a myriad of abdominal complaints of 2 months duration after [place] breast [place]; she was txed and released from the ER at [facility] prior to admission; she is a poor historian; she is eating and moving her bowels and has many non specific GI/ c/o's none of which are indicatie of an acute surgical process; her chart was reviewed and w/u to date reviewed PMHx: none PSHx: cosmetic breast and related Home Medications Medication Instructions Recorded Acetaminophen [Tylenol -] 500 mg PO BID 05/04/18 Ciprofloxacin HCl [Cipro] 500 mg PO BID 05/04/18 Famotidine [Pepcid] 40 mg PO DAILY 05/04/18 Allergies Allergy/AdvReac Type Severity Reaction Status Date / Time No Known Allergies Allergy Verified 05/04/18 09:28 PHYSICAL EXAM: GENERAL: Awake, alert, and fully oriented, in no acute distress. HEAD: Normal with no signs of trauma. EYES: sclera anicteric, conjunctiva clear. NECK: Normal ROM, supple without lymphadenopathy, JVD, or masses. ABDOMEN: Soft, nontender, not distended, normoactive bowel sounds, no guarding, no rebound, no masses. No organomegaly. MUSCULOSKELETAL: Normal ROM at all joints. No bony deformities or tenderness. No CVA tenderness. UPPER EXTREMITIES: 2+ pulses, warm, well-perfused. No cyanosis. Cap refill <2 seconds. No peripheral edema. LOWER EXTREMITIES: 2+ pulses, warm, well-perfused. No calf tenderness. No peripheral edema. NEUROLOGICAL: Normal speech, gait not observed. PSYCH: Cooperative. Good eye contact. Appropriate mood and affect. SKIN: Warm, dry, normal turgor, no rashes or lesions noted. Vital Signs Temperature 98.7 F 05/06/18 06:51 Pulse Rate 97 H 05/06/18 06:51 Respiratory Rate 20 05/06/18 06:51 Blood Pressure 104/60 05/06/18 06:51 O2 Sat by Pulse Oximetry (%) 93 L 05/05/18 21:00 Lab Results WBC 10.8 K/mm3 (4.0-10.0) H 08/30/18 07:30 RBC 3.91 M/mm3 (3.60-5.2) 05/06/18 07:30 Hgb 11.6 GM/dL (10.7-15.3) 05/06/18 07:30 Hct 35.1 % (32.4-45.2) 05/06/18 07:30 MCV 89.8 fl (80-96) 05/06/18 07:30 MCHC 33.1 g/dl (32.0-36.0) 05/06/18 07:30 RDW 12.9 % (11.6-15.6) 05/06/18 07:30 Plt Count 287 K/MM3 (134-434) D 05/06/18 07:30 Sodium 139 mmol/L (136-145) 05/06/18 07:30 Potassium 3.9 mmol/L (3.5-5.1) 05/06/18 07:30 Chloride 109 mmol/L (98-107) H 05/06/18 07:30 Carbon Dioxide 24 mmol/L (21-32) 05/06/18 07:30 Anion Gap 6 MMOL/L (8-16) L 05/06/18 07:30 BUN 4 mg/dL (7-18) L 05/06/18 07:30 Creatinine 0.6 mg/dL (0.55-1.02) 05/06/18 07:30 Random Glucose 81 mg/dL (74-106) 05/06/18 07:30 Calcium 8.2 mg/dL (8.5-10.1) L 05/06/18 07:30 All imaging studies to date reviewed IMP: No evidence of an acute surgical abdomen PLAN: PRN f/u. Raymond Maldonado MD FACS
[2018-05-06] MEDS: ENOXAPARIN NA (PORCINE) 40 MG/0.4 ML DISP.SYRIN SQ SCH (10:16)
[2018-05-06] MEDS: PANTOPRAZOLE 40 MG TABLET (FP) PO SCH ×2 (10:24→21:16)
[2018-05-06] MEDS: DOCUSATE SODIUM 100 MG CAPSULE (FP) PO SCH (10:24)
[2018-05-06] MEDS: SENNOSIDES 8.6MG TABLET (FP) PO SCH ×2 (10:24→21:16)
[2018-05-06] MEDS: POLYETHYLENE GLYCOL 3350 119 GM BTL PO SCH (10:25)
--- NOTE | 2018-05-06 12:25 | CONS ---
DATE OF CONSULTATION: 05/06/2018 REASON FOR CONSULTATION: Rule out PID. HISTORY OF PRESENT ILLNESS: Patient is a 27-year-old female, 0, para 0, who was admitted with a chief complaint of periumbilical pain and upper abdominal pain which started about 2 months ago and patient was in [facility] [place] and had had breast reduction and breast implant which was complicated with a deep vein thrombosis of her left arm and she had had some postoperative fever and chills 1 week after the procedure and was treated with antibiotic and now she has been admitted with fever, chills and periumbilical abdominal pain. She denies any vaginal discharge. She is sexually active with 1 partner and not using any type of contraception. Presently on Ancef and Vibramycin. Patient states that she has had history of PID in the past and was treated with chlamydia previously. Her CT of the abdomen and pelvis essentially was negative. Her pelvic sonogram showed no sonographic evidence of tuboovarian abscess and multiple subcentimeter ovarian follicle and there was a small amount of free fluid in the cul-de-sac area. At this time today when I saw the patient did not appear toxic, comfortable. Maximum temperature in the hospital was 101 degrees Fahrenheit. Today temperature is 98.7. Her white blood count on admission was 16.2 and today it is 10.8 and hemoglobin and hematocrit are stable. PHYSICAL EXAMINATION:Abdomen: Soft and nontender. No distention. No rebound or guarding. There was mild upper abdominal tenderness with deep palpation. Lower pelvic there was no guarding or rebound. Pelvic: External genitalia appeared to be normal. Vagina with normal discharge. Cervix was clean, no gross lesion. No cervical motion tenderness. Uterus was anteverted, normal size and adnexa were nontender. IMPRESSION: Rule out infection secondary to recent breast implants and breast reduction. Doubt if this is pelvic inflammatory disease unless it is partially already treated because on the exam she did not have any tenderness of the adnexa or the uterus. I agree with the plan of care. Continue IV antibiotic and follow up the CBC and temperature and reevaluate in 48 to 72 hours. If the temperature continues would repeat the transvaginal sonogram 1 more time to look for any collection of fluid. Otherwise continue IV antibiotic. Thank you for consultation. JACKELYN GRAY M.D. /[id number]
[2018-05-06] MEDS: DOXYCYCLINE INJECTION 100 MG in DEXTROSE 5%-WATER - 100 ML IVPB SCH (12:47)
[2018-05-06] MEDS: ACETAMINOPHEN 325 MG TABLET (FP) PO PRN ×3 (12:55→22:25)
--- NOTE | 2018-05-06 12:58 | PN ---
Physical Exam: SUBJECTIVE: Patient seen and examined at bedside this morning. She was noted to have fever last night, and was given Tylenol. Today she complains of being "gassy". OBJECTIVE: Vital Signs Period Temp Pulse Resp BP Sys/Wright Pulse Ox Last 24 Hr 98.1 F-101 F 89-102 18-20 95-118/55-71 93 GENERAL: The patient is awake, alert, and fully oriented, in no acute distress. HEAD: Normal with no signs of trauma. EYES: PERRLA, EOMI, sclera anicteric, conjunctiva clear. NECK: Trachea midline, full range of motion, supple. LUNGS: Breath sounds equal, clear to auscultation bilaterally. HEART: Regular rate and rhythm, S1, S2 without murmur, rub or gallop. ABDOMEN: Soft, nontender, nondistended, normoactive bowel sounds. EXTREMITIES: 2+ pulses, warm, well-perfused, no edema. NEUROLOGICAL: Cranial nerves II through XII grossly intact. Normal speech, normal gait. PSYCH: Normal mood, normal affect. SKIN: Warm, dry, normal turgor, no rashes or lesions noted Laboratory Results - last 24 hr 05/06/18 05/06/18 07:30 07:30 WBC 10.8 H RBC 3.91 Hgb 11.6 Hct 35.1 MCV 89.8 MCH 29.8 MCHC 33.1 RDW 12.9 Plt Count 287 D MPV 7.8 Sodium 139 Potassium 3.9 Chloride 109 H Carbon Dioxide 24 Anion Gap 6 L BUN 4 L Creatinine 0.6 Creat Clearance w eGFR > 60 Random Glucose 81 Calcium 8.2 L Active Medications Generic Name Dose Route Start Last Admin Trade Name Freq PRN Reason Stop Dose Admin Acetaminophen 650 mg 05/04/18 18:58 05/05/18 21:25 Tylenol - PO 650 mg Q4H PRN Administration FEVER Docusate Sodium 100 mg 05/05/18 10:00 05/06/18 10:24 Colace - PO 100 mg DAILY [facility] Administration Doxycycline Hyclate 100 mg/ 100 mls @ 100 mls/hr 05/04/18 22:00 05/06/18 12: 47 Dextrose IVPB 100 mls/hr BID [facility] Administration Sodium Chloride 1,000 mls @ 100 mls/hr 05/05/18 08:15 05/06/18 10:15 Normal Saline - IV Not Given ASDIR [facility] Cefoxitin Sodium 2 gm/ 100 mls @ 200 mls/hr 05/05/18 15:00 05/06/18 10:24 Dextrose IVPB 200 mls/hr Q6H-IV [facility] Administration Protocol Ketorolac Tromethamine 15 mg 05/05/18 13:25 05/06/18 00:13 Toradol Injection - IVPUSH 05/10/18 13:24 15 mg Q6H PRN Administration PAIN LEVEL 7 - 10 Pantoprazole Sodium 40 mg 05/06/18 10:00 05/06/18 10:24 Protonix - PO 40 mg BID [facility] Administration Polyethylene Glycol 17 gm 05/06/18 10:00 05/06/18 10:25 Miralax (For Daily Use) - PO 17 grams DAILY [facility] Administration Senna 1 tab 05/05/18 10:00 05/06/18 10:24 Senna - PO 1 tab BID [facility] Administration Imaging CT of abdomen/pelvis - partially included b/l breast implants; focal low attenuation density in medial segment of left hepatic lobe, anteriorly, on axial image 40 measuring 1.8x1.1 cm for which correlation with ultrasound is needed to further assess its consistency. 2 focal low-attenuation density in the right kidney, of indeterminate consistency for which correlation with renal ultrasound is needed. Questionable tiny nonobstructing right renal lower pole stone measuring 2mm. There is suggestion of a few diverticula in the sigmoid colon without evidence of acute diverticulitis. RUQ US - a 1.7 cm nonspecific right hepatic lobe focus is seen possibly representing a cyst with a small amount of internal debris. Two small nonspecific right renal cortical foci identified on CT cannot be appreciated on sonography. Transvaginal US - no sonographic evidence of tubo-ovarian abscess; multiple b/l subcentimeter ovarian follicles; small amount of free fluid within the cul-de- sac. MRI of abdomen - non specific areas of hyperenhancement in right upper and right lower renal pole with corresponding restricted diffusion. Findings likely represent focal nephronia/nephritis and unlikely to represent an abscess. 2.2x1 cm anterior right hepatic lobe simple cyst. Renal US - morphologically normal kidneys with no evidence of renal cysts, hydronephrosis or acute pathology Breast US - underlying the open in wound in the left breast, there are 2 fluid collections noted, one measuring 0.8cm and the other seen measuring 0.6 cm. Echo - LVEF normal, trace mild MR, moderate TR Duplex scan UE - no evidence of DVT ASSESSMENT/PLAN: Patient is a 27 year old male female with a PMHx of Pelvic Inflammatory disease 2-3 years ago who presented to the ED complaining of a "crampy-like" periumbilical pain radiating to the right mid abdomen that started two months ago when she was in the [place]. Patient reported she had breast reduction 2 months ago, after which, she started noticing having intermittent abdominal pain and episodes of fever. #Sepsis, etiology to be determined -Breast US - underlying the open in wound in the left breast, there are 2 fluid collections noted, one measuring 0.8cm and the other seen measuring 0.6 cm. -Ultrasound-guided left breast aspiration x2 done. Pus was obtained which was sent to Bacteriology Lab for culture/sensitivity, Gram stain and AFB evaluation as requested. -Blood and urine cultures negative for any growth. HIV negative. -Toradol 15mg q6h PRN for pain. -Continue Cefoxitin 2gm Q6H and Doxycycline 100mg BID on Day 2. -Dr. Luna consulted - recommendations appreciated. -Will continue IV antibiotics, f/u CBC and monitor temperature. -Dr. Meneses consulted - recommendations appreciated. -Needle aspiration with guide of left breast fluid collection ordered. -Dr. Levi consulted - recommendations appreciated. -Dr. Hoff consulted - recommendations appreciated. -Dr. Maldonado consult appreciated. #Constipation -patient reported not having bowel movements for 1 week. -Senna and Colace started -Miralax added for gas symptoms #FEN -IV NS (0.9%) at 100ml/hr -Electrolytes wnl, routine bmp monitoring -Regular diet #Prophylaxis -Lovenox 40mg SQ daily for DVT #Disposition -Full code Visit type - Emergency Visit Emergency Visit: Yes ED Registration Date: 05/04/18 Care time: The patient presented to the Emergency Department on the above date and was hospitalized for further evaluation of their emergent condition. - New Patient This patient is new to me today: Yes Date on this admission: 05/06/18 - Critical Care Critical Care patient: No
--- NOTE | 2018-05-06 13:41 | PN ---
Progress Note, Physician History of Present Illness: Temp elevation noted C/O R flank /abdo pain No dysuria No c/o breast pain US revealed fluid collection L breast - Current Medication List Current Medications: Active Medications Acetaminophen (Tylenol -) 650 mg PO Q4H PRN PRN Reason: FEVER Last Admin: 05/06/18 12:55 Dose: 650 mg Docusate Sodium (Colace -) 100 mg PO DAILY [facility] Last Admin: 05/06/18 10:24 Dose: 100 mg Doxycycline Hyclate 100 mg/ (Dextrose) 100 mls @ 100 mls/hr IVPB BID [facility] Last Admin: 05/06/18 12:47 Dose: 100 mls/hr Sodium Chloride (Normal Saline -) 1,000 mls @ 100 mls/hr IV ASDIR [facility] Last Admin: 05/06/18 10:15 Dose: Not Given Cefoxitin Sodium 2 gm/ (Dextrose) 100 mls @ 200 mls/hr IVPB Q6H-IV [facility]; Protocol Last Admin: 05/06/18 10:24 Dose: 200 mls/hr Ketorolac Tromethamine (Toradol Injection -) 15 mg IVPUSH Q6H PRN PRN Reason: PAIN LEVEL 7 - 10 Stop: 05/10/18 13:24 Last Admin: 05/06/18 00:13 Dose: 15 mg Pantoprazole Sodium (Protonix -) 40 mg PO BID [facility] Last Admin: 05/06/18 10:24 Dose: 40 mg Polyethylene Glycol (Miralax (For Daily Use) -) 17 gm PO DAILY [facility] Last Admin: 05/06/18 10:25 Dose: 17 grams Senna (Senna -) 1 tab PO BID [facility] Last Admin: 05/06/18 10:24 Dose: 1 tab - Objective Vital Signs: Vital Signs Temperature 98.7 F 05/06/18 06:51 Pulse Rate 97 H 05/06/18 06:51 Respiratory Rate 20 05/06/18 06:51 Blood Pressure 104/60 05/06/18 06:51 O2 Sat by Pulse Oximetry (%) 93 L 05/05/18 21:00 Constitutional: Yes: No Distress Cardiovascular: Yes: Regular Rate and Rhythm, S1, S2 Respiratory: Yes: CTA Bilaterally Gastrointestinal: Yes: Normal Bowel Sounds, Soft Genitourinary: Yes: CVA Tenderness - Right Breast(s): Yes: Other (tenderness beneath L breast No mass palpable) Extremities: Yes: Other (erythema L antecubital fossa with ? red streak No palpable cord) Edema: No Labs: CBC, BMP 05/06/18 07:30 05/06/18 07:30 Assessment/Plan ? R pyelonephritis/ sepsis secondary to R/O L breast seroma v. abscess ?PID Continue empiric cefoxitin/ doxycycline Await c/s ? IR asp L breast collection
[2018-05-06] MEDS: VANCOMYCIN 1 GM PREMIX - 1 GM/200 ML BAG IVPB SCH (18:06)
[2018-05-06] MEDS: DOXYCYCLINE HYCLATE 100 MG CAPSULE PO SCH (18:07)
[2018-05-06] MEDS ORDERED: SIMETHICONE 80 MG TAB.CHEW (FP) PO PRN (18:14)
--- NOTE | 2018-05-06 22:11 | CONSULT ---
Consult Consult Specialty:: Plastic Surgery Referred by:: Dr Alpesh Gamboa Reason for Consultation:: Recent High grade fever, Post Surgery in [facility] - History of Present Illness Chief Complaint: Fever, Pain History of Present Illness: Two months ago patient had travelled to [facility] , underwent Bilateral Breast Augmentation, Breast Lift. Patient had a similar procedure a year ago by same surgeon, she felt her breasts had been overly enlarged , also one of the Implants on the Left breast had " Flipped" "Bottom-Out" she needed a corrections. She also requested to have reduction in her breast size. She underwent Procedure, while her stay in she mentioned to the surgeon of her not feeling well, she was evaluated but told everything was well. She also developed abdominal pains at the same time. Ching returned to [place] 2 months and has not felt well. Recently she developed High grade fever. She was seen in ER and admitted for 102 fever and work up. - Past Medical History ...LMP: 04/13/18 ...: No - Alcohol/Substance Use Hx Alcohol Use: No - Smoking History Smoking history: Never smoked Have you smoked in the past 12 months: No - Social History History of Recent Travel: Yes (Was in [facility] for Cosmetic surgery) Home Medications - Allergies Allergies/Adverse Reactions: Allergies Allergy/AdvReac Type Severity Reaction Status Date / Time No Known Allergies Allergy Verified 05/04/18 09:28 - Home Medications Home Medications: Ambulatory Orders Acetaminophen [Tylenol -] 500 mg PO BID 05/04/18 Ciprofloxacin HCl [Cipro] 500 mg PO BID 05/04/18 Famotidine [Pepcid] 40 mg PO DAILY 05/04/18 Physical Exam Vital Signs: Vital Signs Temperature 98.7 F 05/06/18 20:05 Pulse Rate 98 H 05/06/18 20:05 Respiratory Rate 16 05/06/18 20:05 Blood Pressure 98/55 05/06/18 20:05 O2 Sat by Pulse Oximetry (%) 98 05/06/18 09:00 Labs: CBC, BMP 05/06/18 07:30 05/06/18 07:30
[2018-05-07] MEDS: SODIUM CHLORIDE 1,000 ML IV SCH ×2 (01:36→08:32)
[2018-05-07] MEDS ORDERED: PT OWN MED DRAWER 7, Y5N ONE ×3 (02:31→20:31)
[2018-05-07] MEDS: CEFOXITIN SODIUM 2 GM in DEXTROSE 5%-WATER 100 ML IVPB SCH ×4 (02:35→20:44)
[2018-05-07] MEDS: VANCOMYCIN 1 GM PREMIX - 1 GM/200 ML BAG IVPB SCH ×2 (03:46→18:29)
[2018-05-07 08:37] LABS: HEMATOCRIT 36.2 % (32.4-45.2); HEMOGLOBIN 12.1 GM/dL (10.7-15.3); MCH 29.7 pg (25.7-33.7); MCHC 33.6 g/dl (32.0-36.0); MEAN CELL VOLUME 88.6 fl (80-96); MEAN PLT VOLUME 7.7 fl (7.5-11.1); PLATELET COUNT 327 K/MM3 (134-434); RBC 4.09 M/mm3 (3.60-5.2); RDW 12.9 % (11.6-15.6); WHITE BLOOD COUNT 8.6 K/mm3 (4.0-10.0)
[2018-05-07 08:57] LABS: ANION GAP 8 MMOL/L (8-16); BLOOD UREA NITROGEN 3 mg/dL (7-18); CALCIUM 8.2 mg/dL (8.5-10.1); CHLORIDE 106 mmol/L (98-107); CO2 24 mmol/L (21-32); CREATININE 0.6 mg/dL (0.55-1.02); GLUCOSE,RANDOM 74 mg/dL (74-106); SODIUM 138 mmol/L (136-145)
[2018-05-07] MEDS: PANTOPRAZOLE 40 MG TABLET (FP) PO SCH ×2 (09:58→21:19)
[2018-05-07] MEDS: DOXYCYCLINE HYCLATE 100 MG CAPSULE PO SCH (09:58)
[2018-05-07] MEDS: SENNOSIDES 8.6MG TABLET (FP) PO SCH ×2 (09:58→21:19)
[2018-05-07] MEDS: DOCUSATE SODIUM 100 MG CAPSULE (FP) PO SCH (09:58)
[2018-05-07] MEDS: POLYETHYLENE GLYCOL 3350 119 GM BTL PO SCH (10:01)
[2018-05-07 10:05] VITALS: BMI 29.0
[2018-05-07 11:09] LABS: ANISOCYTOSIS 0; MACROCYTOSIS 0; PLATELET ESTIMATE NORMAL
--- NOTE | 2018-05-07 11:10 | PN ---
Progress Note, Physician History of Present Illness: Feeling better S/P aspiration, breast collection Mild breast tenderness Still with R flank discomfort Temps down Afebrile No dysuria - Current Medication List Current Medications: Active Medications Acetaminophen (Tylenol -) 650 mg PO Q4H PRN PRN Reason: FEVER Last Admin: 05/06/18 22:25 Dose: 650 mg Docusate Sodium (Colace -) 100 mg PO DAILY [facility] Last Admin: 05/07/18 09:58 Dose: 100 mg Sodium Chloride (Normal Saline -) 1,000 mls @ 100 mls/hr IV ASDIR [facility] Last Admin: 05/07/18 08:32 Dose: Not Given Cefoxitin Sodium 2 gm/ (Dextrose) 100 mls @ 200 mls/hr IVPB Q6H-IV [facility]; Protocol Last Admin: 05/07/18 09:58 Dose: 200 mls/hr Vancomycin HCl (Vancomycin 1 Gm Premix -) 1 gm in 200 mls @ 166.667 mls/hr IVPB Q12H [facility]; Protocol Last Admin: 05/07/18 03:46 Dose: 166.667 mls/hr Ketorolac Tromethamine (Toradol Injection -) 15 mg IVPUSH Q6H PRN PRN Reason: PAIN LEVEL 7 - 10 Stop: 05/10/18 13:24 Last Admin: 05/06/18 00:13 Dose: 15 mg Pantoprazole Sodium (Protonix -) 40 mg PO BID [facility] Last Admin: 05/07/18 09:58 Dose: 40 mg Polyethylene Glycol (Miralax (For Daily Use) -) 17 gm PO DAILY [facility] Last Admin: 05/07/18 10:01 Dose: 17 grams Senna (Senna -) 1 tab PO BID [facility] Last Admin: 05/07/18 09:58 Dose: 1 tab Simethicone (Mylicon -) 80 mg PO QID PRN PRN Reason: GAS Last Admin: 05/06/18 18:27 Dose: 80 mg - Objective Vital Signs: Vital Signs Temperature 98.6 F 05/07/18 06:00 Pulse Rate 72 05/07/18 06:00 Respiratory Rate 18 05/07/18 06:00 Blood Pressure 109/57 05/07/18 06:00 O2 Sat by Pulse Oximetry (%) 98 05/06/18 22:45 Constitutional: Yes: No Distress Cardiovascular: Yes: Regular Rate and Rhythm, S1, S2 Respiratory: Yes: CTA Bilaterally Gastrointestinal: Yes: Normal Bowel Sounds, Soft. No: Tenderness Breast(s): Yes: Other (no tenderness beneath L breast) Edema: No Labs: CBC, BMP 05/07/18 07:00 05/07/18 07:00 Assessment/Plan ? R pyelonephritis/ sepsis secondary to S/P aspiration L breast collection Await aspirate c/s Continue empiric cefoxitin/ vancomycin D/C doxycycline
[2018-05-07 16:24] LABS: URINE APPEARANCE CLEAR; URINE BILIRUBIN NEGATIVE (<2.0 mg/dL); URINE COLOR LTYELLOW; URINE GLUCOSE (UA) NEGATIVE (NEGATIVE); URINE KETONE NEGATIVE (NEGATIVE); URINE LEUK ESTERASE NEGATIVE (NEGATIVE); URINE NITRITE NEGATIVE (NEGATIVE); URINE PROTEIN NEGATIVE (NEGATIVE); URINE UROBILINOGEN NEGATIVE mg/dL (0.2-1.0)
--- NOTE | 2018-05-07 18:36 | PN ---
Teaching Attending Note Name of Resident: Cheryl Carreon ATTENDING PHYSICIAN STATEMENT I saw and evaluated the patient. I reviewed the resident's note and discussed the case with the resident. I agree with the resident's findings and plan as documented with exceptions below. SUBJECTIVE: Patient seen and examined. breast pain improved. Vague abdominal symptoms, overall feels unchanged. No new urinary complaints. OBJECTIVE: Vital Signs Period Temp Pulse Resp BP Sys/Wright Pulse Ox Last 24 Hr 97.5 F-98.7 F 72-98 16-20 98-109/55-58 98 Intake & Output 05/04/18 05/05/18 05/06/18 05/07/18 23:59 23:59 23:59 23:59 Intake Total 2100 2550 1870 1500 Balance 2100 2550 1870 1500 Weight 164 lb 164 lb General: ambulating in room in no acute distress Abdomen:Soft, improved anterior exam, no lower abdominal tenderness, minimal in RMQ, right CVA tenderness, no voluntary or involuntary guarding or rigidity Breast: improved tenderness in 5 o clock position left breast, no discharge Active Medications Acetaminophen (Tylenol -) 650 mg PO Q4H PRN PRN Reason: FEVER Last Admin: 05/06/18 22:25 Dose: 650 mg Docusate Sodium (Colace -) 100 mg PO DAILY SHIKHA Last Admin: 05/07/18 09:58 Dose: 100 mg Sodium Chloride (Normal Saline -) 1,000 mls @ 100 mls/hr IV ASDIR SHIKHA Last Admin: 05/07/18 08:32 Dose: Not Given Cefoxitin Sodium 2 gm/ (Dextrose) 100 mls @ 200 mls/hr IVPB Q6H-IV SHIKHA; Protocol Last Admin: 05/07/18 15:12 Dose: 200 mls/hr Vancomycin HCl (Vancomycin 1 Gm Premix -) 1 gm in 200 mls @ 166.667 mls/hr IVPB Q12H SHIKHA; Protocol Last Admin: 05/07/18 18:29 Dose: 166.667 mls/hr Ketorolac Tromethamine (Toradol Injection -) 15 mg IVPUSH Q6H PRN PRN Reason: PAIN LEVEL 7 - 10 Stop: 05/10/18 13:24 Last Admin: 05/06/18 00:13 Dose: 15 mg Pantoprazole Sodium (Protonix -) 40 mg PO BID SHIKHA Last Admin: 05/07/18 09:58 Dose: 40 mg Polyethylene Glycol (Miralax (For Daily Use) -) 17 gm PO DAILY [facility] Last Admin: 05/07/18 10:01 Dose: 17 grams Senna (Senna -) 1 tab PO BID [facility] Last Admin: 05/07/18 09:58 Dose: 1 tab Simethicone (Mylicon -) 80 mg PO QID PRN PRN Reason: GAS Last Admin: 05/06/18 18:27 Dose: 80 mg Laboratory Results - last 24 hr 05/07/18 05/07/18 05/07/18 07:00 07:00 07:00 WBC 8.6 Cancelled Corrected WBC (auto) Cancelled RBC 4.09 Cancelled Hgb 12.1 Cancelled Hct 36.2 Cancelled MCV 88.6 Cancelled MCH 29.7 Cancelled MCHC 33.6 Cancelled RDW 12.9 Cancelled Plt Count 327 Cancelled MPV 7.7 Cancelled Absolute Neuts (auto) Cancelled Neutrophils % Cancelled Neutrophils % (Manual) 70.0 Band Neutrophils % 0.0 Lymphocytes % Cancelled Lymphocytes % (Manual) 18.0 Monocytes % Cancelled Monocytes % (Manual) 12 H Eosinophils % Cancelled Eosinophils % (Manual) 0.0 Basophils % Cancelled Basophils % (Manual) 0.0 Myelocytes % (Man) 0 Promyelocytes % (Man) 0 Blast Cells % (Manual) 0 Nucleated RBC % 0 Cancelled Metamyelocytes 0 Hypochromia 0 Platelet Estimate Normal Cancelled Platelet Comment Cancelled Polychromasia 0 Poikilocytosis 0 Anisocytosis 0 Microcytosis 0 Macrocytosis 0 Sodium 138 Potassium 4.0 Chloride 106 Carbon Dioxide 24 Anion Gap 8 BUN 3 L Creatinine 0.6 Creat Clearance w eGFR > 60 Random Glucose 74 Calcium 8.2 L Urine Color Urine Appearance Urine pH Ur Specific [place] Urine Protein Urine Glucose (UA) Urine Ketones Urine Blood Urine Nitrite Urine Bilirubin Urine Urobilinogen Ur Leukocyte Esterase 05/07/18 15:00 WBC Corrected WBC (auto) RBC Hgb Hct MCV MCH MCHC RDW Plt Count MPV Absolute Neuts (auto) Neutrophils % Neutrophils % (Manual) Band Neutrophils % Lymphocytes % Lymphocytes % (Manual) Monocytes % Monocytes % (Manual) Eosinophils % Eosinophils % (Manual) Basophils % Basophils % (Manual) Myelocytes % (Man) Promyelocytes % (Man) Blast Cells % (Manual) Nucleated RBC % Metamyelocytes Hypochromia Platelet Estimate Platelet Comment Polychromasia Poikilocytosis Anisocytosis Microcytosis Macrocytosis Sodium Potassium Chloride Carbon Dioxide Anion Gap BUN Creatinine Creat Clearance w eGFR Random Glucose Calcium Urine Color Ltyellow Urine Appearance Clear Urine pH 6.0 Ur Specific [place] 1.009 Urine Protein Negative Urine Glucose (UA) Negative Urine Ketones Negative Urine Blood Negative Urine Nitrite Negative Urine Bilirubin Negative Urine Urobilinogen Negative Ur Leukocyte Esterase Negative ASSESSMENT AND PLAN: 27 yof with recent Breast augmentation followed by breast reduction/liposuction surgery in [place], comes with 2months of intermittent abdominal pain, fevers. -Sepsis, From ?Left breast infection/fluid collection vs PID -ABdominal pain/Right CVA tenderness -Simple hepatic cyst -Renal hypoenhancement areas, normal Renal US -Recent breast augmentation followed by breast reduction/liposuction Plan: Fevers resolved. WBC normalized. Cefoxitin day 3. Vancomycin day 2 D/c doxycycline. ID input noted. repeat ua neg. Renal US neg for concerns. Outpatient follow up imaging. Follow up left breat fluid aspirate cultures. Blood cx/smear exam neg so far. 2D echo noted. Follow up Chlamydia/GC probe. HIV screen neg. [employer] input appreciated. Discussed with Dr. Riggins, appendix normal. Surgery input Dr. Maldonado appreciated. GI input noted. Supportive care with IVF, pain control toradol/Tylenol. Protonix DVTPPX lovenox Dispo in 24-48 hours if no new fevers or s/s concerning for infection. Plan discussed with patient in detail, all questions answered.
--- NOTE | 2018-05-07 18:55 | PN ---
Physical Exam: SUBJECTIVE: Patient seen and examined at bedside this morning. No acute events overnight. OBJECTIVE: Vital Signs Period Temp Pulse Resp BP Sys/Wright Pulse Ox Last 24 Hr 97.5 F-98.7 F 72-98 16-20 98-109/55-58 98 GENERAL: The patient is awake, alert, and fully oriented, in no acute distress. HEAD: Normal with no signs of trauma. EYES: PERRL, extraocular movements intact, sclera anicteric, conjunctiva clear. No ptosis. ENT: Ears normal, nares patent, oropharynx clear without exudates, moist mucous membranes. NECK: Trachea midline, full range of motion, supple. LUNGS: Breath sounds equal, clear to auscultation bilaterally, no wheezes, no crackles, no accessory muscle use. HEART: Regular rate and rhythm, S1, S2 without murmur, rub or gallop. ABDOMEN: Soft, nontender, nondistended, normoactive bowel sounds. +R CVA tenderness EXTREMITIES: 2+ pulses, warm, well-perfused, no edema. NEUROLOGICAL: Cranial nerves II through XII grossly intact. Normal speech, gait not observed. PSYCH: Normal mood, normal affect. SKIN: Warm, dry, normal turgor, no rashes or lesions noted Laboratory Results - last 24 hr 05/07/18 05/07/18 05/07/18 07:00 07:00 07:00 WBC 8.6 Cancelled Corrected WBC (auto) Cancelled RBC 4.09 Cancelled Hgb 12.1 Cancelled Hct 36.2 Cancelled MCV 88.6 Cancelled MCH 29.7 Cancelled MCHC 33.6 Cancelled RDW 12.9 Cancelled Plt Count 327 Cancelled MPV 7.7 Cancelled Absolute Neuts (auto) Cancelled Neutrophils % Cancelled Neutrophils % (Manual) 70.0 Band Neutrophils % 0.0 Lymphocytes % Cancelled Lymphocytes % (Manual) 18.0 Monocytes % Cancelled Monocytes % (Manual) 12 H Eosinophils % Cancelled Eosinophils % (Manual) 0.0 Basophils % Cancelled Basophils % (Manual) 0.0 Myelocytes % (Man) 0 Promyelocytes % (Man) 0 Blast Cells % (Manual) 0 Nucleated RBC % 0 Cancelled Metamyelocytes 0 Hypochromia 0 Platelet Estimate Normal Cancelled Platelet Comment Cancelled Polychromasia 0 Poikilocytosis 0 Anisocytosis 0 Microcytosis 0 Macrocytosis 0 Sodium 138 Potassium 4.0 Chloride 106 Carbon Dioxide 24 Anion Gap 8 BUN 3 L Creatinine 0.6 Creat Clearance w eGFR > 60 Random Glucose 74 Calcium 8.2 L Urine Color Urine Appearance Urine pH Ur Specific [place] Urine Protein Urine Glucose (UA) Urine Ketones Urine Blood Urine Nitrite Urine Bilirubin Urine Urobilinogen Ur Leukocyte Esterase 05/07/18 15:00 WBC Corrected WBC (auto) RBC Hgb Hct MCV MCH MCHC RDW Plt Count MPV Absolute Neuts (auto) Neutrophils % Neutrophils % (Manual) Band Neutrophils % Lymphocytes % Lymphocytes % (Manual) Monocytes % Monocytes % (Manual) Eosinophils % Eosinophils % (Manual) Basophils % Basophils % (Manual) Myelocytes % (Man) Promyelocytes % (Man) Blast Cells % (Manual) Nucleated RBC % Metamyelocytes Hypochromia Platelet Estimate Platelet Comment Polychromasia Poikilocytosis Anisocytosis Microcytosis Macrocytosis Sodium Potassium Chloride Carbon Dioxide Anion Gap BUN Creatinine Creat Clearance w eGFR Random Glucose Calcium Urine Color Ltyellow Urine Appearance Clear Urine pH 6.0 Ur Specific [place] 1.009 Urine Protein Negative Urine Glucose (UA) Negative Urine Ketones Negative Urine Blood Negative Urine Nitrite Negative Urine Bilirubin Negative Urine Urobilinogen Negative Ur Leukocyte Esterase Negative Active Medications Generic Name Dose Route Start Last Admin Trade Name Freq PRN Reason Stop Dose Admin Acetaminophen 650 mg 05/04/18 18:58 05/06/18 22:25 Tylenol - PO 650 mg Q4H PRN Administration FEVER Docusate Sodium 100 mg 05/05/18 10:00 05/07/18 09:58 Colace - PO 100 mg DAILY SHIKHA Administration Enoxaparin Sodium 40 mg 05/08/18 10:00 Lovenox - SQ DAILY COUNTS INCLUDE 234 BEDS AT THE [facility] Sodium Chloride 1,000 mls @ 100 mls/hr 05/05/18 08:15 05/07/18 08:32 Normal Saline - IV Not Given ASDIR SHIKHA Cefoxitin Sodium 2 gm/ 100 mls @ 200 mls/hr 05/05/18 15:00 05/07/18 15:12 Dextrose IVPB 200 mls/hr Q6H-IV SHIKHA Administration Protocol Vancomycin HCl 1 gm in 200 mls @ 166.667 mls/hr 05/06/18 16:30 05/07/18 18:29 Vancomycin 1 Gm Premix - IVPB 166.667 mls/hr Q12H SHIKHA Administration Protocol Ketorolac Tromethamine 15 mg 05/05/18 13:25 05/06/18 00:13 Toradol Injection - IVPUSH 05/10/18 13:24 15 mg Q6H PRN Administration PAIN LEVEL 7 - 10 Pantoprazole Sodium 40 mg 05/06/18 10:00 05/07/18 09:58 Protonix - PO 40 mg BID SHIKHA Administration Polyethylene Glycol 17 gm 05/06/18 10:00 05/07/18 10:01 Miralax (For Daily Use) - PO 17 grams DAILY SHIKHA Administration Senna 1 tab 05/05/18 10:00 05/07/18 09:58 Senna - PO 1 tab BID SHIKHA Administration Simethicone 80 mg 05/06/18 18:14 05/06/18 18:27 Mylicon - PO 80 mg QID PRN Administration GAS Imaging CT of abdomen/pelvis - partially included b/l breast implants; focal low attenuation density in medial segment of left hepatic lobe, anteriorly, on axial image 40 measuring 1.8x1.1 cm for which correlation with ultrasound is needed to further assess its consistency. 2 focal low-attenuation density in the right kidney, of indeterminate consistency for which correlation with renal ultrasound is needed. Questionable tiny nonobstructing right renal lower pole stone measuring 2mm. There is suggestion of a few diverticula in the sigmoid colon without evidence of acute diverticulitis. RUQ US - a 1.7 cm nonspecific right hepatic lobe focus is seen possibly representing a cyst with a small amount of internal debris. Two small nonspecific right renal cortical foci identified on CT cannot be appreciated on sonography. Transvaginal US - no sonographic evidence of tubo-ovarian abscess; multiple b/l subcentimeter ovarian follicles; small amount of free fluid within the cul-de- sac. MRI of abdomen - non specific areas of hyperenhancement in right upper and right lower renal pole with corresponding restricted diffusion. Findings likely represent focal nephronia/nephritis and unlikely to represent an abscess. 2.2x1 cm anterior right hepatic lobe simple cyst. Renal US - morphologically normal kidneys with no evidence of renal cysts, hydronephrosis or acute pathology Breast US - underlying the open in wound in the left breast, there are 2 fluid collections noted, one measuring 0.8cm and the other seen measuring 0.6 cm. Echo - LVEF normal, trace mild MR, moderate TR Duplex scan UE - no evidence of DVT ASSESSMENT/PLAN: Patient is a 27 year old male female with a PMHx of Pelvic Inflammatory disease 2-3 years ago who presented to the ED complaining of a "crampy-like" periumbilical pain radiating to the right mid abdomen that started two months ago when she was in the [place]. Patient reported she had breast reduction 2 months ago, after which, she started noticing having intermittent abdominal pain and episodes of fever. #Sepsis, etiology to be determined -Breast US - underlying the open in wound in the left breast, there are 2 fluid collections noted, one measuring 0.8cm and the other seen measuring 0.6 cm. -Ultrasound-guided left breast aspiration x2 done. Pus was obtained which was sent to Bacteriology Lab for culture/sensitivity, Gram stain and AFB evaluation as requested. -Gram stain of aspirate was negative. Culture/sensitivity, AFB, fungal culture still pending. -Blood and urine cultures negative for any growth. HIV negative. -WBC normal at 8.6 -Tylenol 650mg q4h and Toradol 15mg q6h PRN for pain. -Continue Cefoxitin 2gm Q6H Day 3. -Vancomycin 1gm q12 Day 2. -Vancomycin trough levels ordered 30 mins before 4th dose. -Doxycycline discontinued. -Dr. Luna consulted - recommendations appreciated. -Will continue IV antibiotics, f/u CBC and monitor temperature. -Dr. Meneses consulted - recommendations appreciated. -Dr. Levi consulted - recommendations appreciated. -Dr. Hoff consulted - recommendations appreciated. -Dr. Maldonado consult appreciated. #Constipation -patient reported not having bowel movements for 1 week. -Senna and Colace started -Miralax added for gas symptoms #FEN -IV NS (0.9%) at 100ml/hr -Electrolytes wnl, routine bmp monitoring -Regular diet #Prophylaxis -Lovenox 40mg SQ daily for DVT #Disposition -Full code Visit type - Emergency Visit Emergency Visit: Yes ED Registration Date: 05/04/18 Care time: The patient presented to the Emergency Department on the above date and was hospitalized for further evaluation of their emergent condition. - New Patient This patient is new to me today: Yes Date on this admission: 05/07/18 - Critical Care Critical Care patient: No
[2018-05-08] MEDS ORDERED: PT OWN MED DRAWER 7, Y5N ONE ×3 (01:27→15:02)
[2018-05-08] MEDS: SODIUM CHLORIDE 1,000 ML IV SCH ×2 (01:35→15:10)
[2018-05-08] MEDS: CEFOXITIN SODIUM 2 GM in DEXTROSE 5%-WATER 100 ML IVPB SCH ×4 (03:47→21:04)
[2018-05-08] MEDS: VANCOMYCIN 1 GM PREMIX - 1 GM/200 ML BAG IVPB SCH (05:11)
[2018-05-08 08:12] LABS: BASO % 0.4 % (0-2.0); EOS % 1.4 % (0-4.5); HEMATOCRIT 34.7 % (32.4-45.2); HEMOGLOBIN 11.6 GM/dL (10.7-15.3); LYMPH % 20.3 % (8-40); MCH 29.8 pg (25.7-33.7); MCHC 33.5 g/dl (32.0-36.0); MEAN CELL VOLUME 88.8 fl (80-96); MEAN PLT VOLUME 7.8 fl (7.5-11.1); MONO % 15.6 % (3.8-10.2); NEUT % 62.3 % (42.8-82.8); PLATELET COUNT 322 K/MM3 (134-434); RDW 12.5 % (11.6-15.6)
--- NOTE | 2018-05-08 08:43 | PN ---
Physical Exam: SUBJECTIVE: Patient seen and examined at bedside. Pt had loose BM yesterday. No fevers. No other complaints. Pt enquiring about microbiology results. OBJECTIVE: Vital Signs Period Temp Pulse Resp BP Sys/Wright Pulse Ox Last 24 Hr 97.5 F-98.4 F 76-94 16-20 98-135/58-74 100 Gen: NAD, lying in bed HEENT: NCAT, [place] Neck: supple, no jvd Cardio: mild tachycardia, normal s1s2, no murmur, rubs, gallops Pulm: cta b/l Abd: soft, nontender, no guarding, normal bowel sounds Laboratory Results - last 24 hr 05/07/18 05/07/18 05/07/18 07:00 07:00 07:00 WBC Cancelled Corrected WBC (auto) Cancelled RBC Cancelled Hgb Cancelled Hct Cancelled MCV Cancelled MCH Cancelled MCHC Cancelled RDW Cancelled Plt Count Cancelled MPV Cancelled Absolute Neuts (auto) Cancelled Neutrophils % Cancelled Neutrophils % (Manual) 70.0 Band Neutrophils % 0.0 Lymphocytes % Cancelled Lymphocytes % (Manual) 18.0 Monocytes % Cancelled Monocytes % (Manual) 12 H Eosinophils % Cancelled Eosinophils % (Manual) 0.0 Basophils % Cancelled Basophils % (Manual) 0.0 Myelocytes % (Man) 0 Promyelocytes % (Man) 0 Blast Cells % (Manual) 0 Nucleated RBC % 0 Cancelled Metamyelocytes 0 Hypochromia 0 Platelet Estimate Normal Cancelled Platelet Comment Cancelled Polychromasia 0 Poikilocytosis 0 Anisocytosis 0 Microcytosis 0 Macrocytosis 0 Sodium 138 Potassium 4.0 Chloride 106 Carbon Dioxide 24 Anion Gap 8 BUN 3 L Creatinine 0.6 Creat Clearance w eGFR > 60 Random Glucose 74 Calcium 8.2 L Urine Color Urine Appearance Urine pH Ur Specific [place] Urine Protein Urine Glucose (UA) Urine Ketones Urine Blood Urine Nitrite Urine Bilirubin Urine Urobilinogen Ur Leukocyte Esterase 05/07/18 05/08/18 15:00 06:20 WBC 8.0 Corrected WBC (auto) RBC 3.90 Hgb 11.6 Hct 34.7 MCV 88.8 MCH 29.8 MCHC 33.5 RDW 12.5 Plt Count 322 MPV 7.8 Absolute Neuts (auto) 4.9 Neutrophils % 62.3 Neutrophils % (Manual) Band Neutrophils % Lymphocytes % 20.3 D Lymphocytes % (Manual) Monocytes % 15.6 H Monocytes % (Manual) Eosinophils % 1.4 D Eosinophils % (Manual) Basophils % 0.4 Basophils % (Manual) Myelocytes % (Man) Promyelocytes % (Man) Blast Cells % (Manual) Nucleated RBC % 0 Metamyelocytes Hypochromia Platelet Estimate Platelet Comment Polychromasia Poikilocytosis Anisocytosis Microcytosis Macrocytosis Sodium Potassium Chloride Carbon Dioxide Anion Gap BUN Creatinine Creat Clearance w eGFR Random Glucose Calcium Urine Color Ltyellow Urine Appearance Clear Urine pH 6.0 Ur Specific [place] 1.009 Urine Protein Negative Urine Glucose (UA) Negative Urine Ketones Negative Urine Blood Negative Urine Nitrite Negative Urine Bilirubin Negative Urine Urobilinogen Negative Ur Leukocyte Esterase Negative Active Medications Generic Name Dose Route Start Last Admin Trade Name Freq PRN Reason Stop Dose Admin Acetaminophen 650 mg 05/04/18 18:58 05/06/18 22:25 Tylenol - PO 650 mg Q4H PRN Administration FEVER Docusate Sodium 100 mg 05/05/18 10:00 05/07/18 09:58 Colace - PO 100 mg DAILY SHIKHA Administration Enoxaparin Sodium 40 mg 05/08/18 10:00 Lovenox - SQ DAILY SHIKHA Sodium Chloride 1,000 mls @ 100 mls/hr 05/05/18 08:15 05/08/18 01:35 Normal Saline - IV 100 mls/hr ASDIR SHIKHA Administration Cefoxitin Sodium 2 gm/ 100 mls @ 200 mls/hr 05/05/18 15:00 05/08/18 03:47 Dextrose IVPB 200 mls/hr Q6H-IV SHIKHA Administration Protocol Vancomycin HCl 1 gm in 200 mls @ 166.667 mls/hr 05/06/18 16:30 05/08/18 05:11 Vancomycin 1 Gm Premix - IVPB 166.667 mls/hr Q12H SHIKHA Administration Protocol Ketorolac Tromethamine 15 mg 05/05/18 13:25 05/06/18 00:13 Toradol Injection - IVPUSH 05/10/18 13:24 15 mg Q6H PRN Administration PAIN LEVEL 7 - 10 Pantoprazole Sodium 40 mg 05/06/18 10:00 05/07/18 21:19 Protonix - PO 40 mg BID SHIKHA Administration Polyethylene Glycol 17 gm 05/06/18 10:00 05/07/18 10:01 Miralax (For Daily Use) - PO 17 grams DAILY SHIKHA Administration Senna 1 tab 05/05/18 10:00 05/07/18 21:19 Senna - PO 1 tab BID SHIKHA Administration Simethicone 80 mg 05/06/18 18:14 05/06/18 18:27 Mylicon - PO 80 mg QID PRN Administration GAS ASSESSMENT/PLAN: CT of abdomen/pelvis - partially included b/l breast implants; focal low attenuation density in medial segment of left hepatic lobe, anteriorly, on axial image 40 measuring 1.8x1.1 cm for which correlation with ultrasound is needed to further assess its consistency. 2 focal low-attenuation density in the right kidney, of indeterminate consistency for which correlation with renal ultrasound is needed. Questionable tiny nonobstructing right renal lower pole stone measuring 2mm. There is suggestion of a few diverticula in the sigmoid colon without evidence of acute diverticulitis. RUQ US - a 1.7 cm nonspecific right hepatic lobe focus is seen possibly representing a cyst with a small amount of internal debris. Two small nonspecific right renal cortical foci identified on CT cannot be appreciated on sonography. Transvaginal US - no sonographic evidence of tubo-ovarian abscess; multiple b/l subcentimeter ovarian follicles; small amount of free fluid within the cul-de- sac. MRI of abdomen - non specific areas of hyperenhancement in right upper and right lower renal pole with corresponding restricted diffusion. Findings likely represent focal nephronia/nephritis and unlikely to represent an abscess. 2.2x1 cm anterior right hepatic lobe simple cyst. Renal US - morphologically normal kidneys with no evidence of renal cysts, hydronephrosis or acute pathology Breast US - underlying the open in wound in the left breast, there are 2 fluid collections noted, one measuring 0.8cm and the other seen measuring 0.6 cm. Echo - LVEF normal, trace mild MR, moderate TR Duplex scan UE - no evidence of DVT ASSESSMENT/PLAN: Patient is a 27 year old male female with a PMHx of Pelvic Inflammatory disease 2-3 years ago who presented to the ED complaining of a "crampy-like" periumbilical pain radiating to the right mid abdomen that started two months ago when she was in the [place]. Patient reported she had breast reduction 2 months ago, after which, she started noticing having intermittent abdominal pain and episodes of fever. #Sepsis, etiology to be determined -Breast US - underlying the open in wound in the left breast, there are 2 fluid collections noted, one measuring 0.8cm and the other seen measuring 0.6 cm. -Ultrasound-guided left breast aspiration x2 done. Pus was obtained which was sent to Bacteriology Lab for culture/sensitivity, Gram stain and AFB evaluation as requested. -Gram stain of aspirate was negative. Culture/sensitivity, AFB, fungal culture still pending. -Blood and urine cultures negative for any growth. HIV negative. -WBC normal at 8.6 -Tylenol 650mg q4h and Toradol 15mg q6h PRN for pain. -Continue Cefoxitin 2gm Q6H Day 4. -Vancomycin 1gm q12 Day 3. -Vancomycin trough levels ordered 30 mins before 4th dose. PENDING -Doxycycline discontinued. -Dr. Luna consulted - recommendations appreciated. -Will continue IV antibiotics, f/u CBC and monitor temperature. -Dr. Meneses consulted - recommendations appreciated. -Dr. Levi consulted - recommendations appreciated. -Dr. Hoff consulted - recommendations appreciated. -Dr. Maldonado consult appreciated. #Constipation: RESOLVED -Pt reports loose BM yest -Senna and Colace started -Miralax added for gas symptoms #FEN -IV NS (0.9%) at 100ml/hr -Electrolytes wnl, routine bmp monitoring -Regular diet #Prophylaxis -Lovenox 40mg SQ daily for DVT #Disposition -Full code Tucker Charles MD PGY2, IM Visit type - Emergency Visit Emergency Visit: Yes ED Registration Date: 05/04/18 Care time: The patient presented to the Emergency Department on the above date and was hospitalized for further evaluation of their emergent condition. - New Patient This patient is new to me today: No - Critical Care Critical Care patient: No - Discharge Referral Referred to [facility] No
[2018-05-08 08:46] LABS: ANION GAP 9 MMOL/L (8-16); BLOOD UREA NITROGEN 4 mg/dL (7-18); CALCIUM 7.9 mg/dL (8.5-10.1); CHLORIDE 107 mmol/L (98-107); CO2 23 mmol/L (21-32); CREATININE 0.7 mg/dL (0.55-1.02); GLUCOSE,RANDOM 84 mg/dL (74-106); POTASSIUM 4.1 mmol/L (3.5-5.1); SODIUM 139 mmol/L (136-145)
--- NOTE | 2018-05-08 08:48 | PN ---
Teaching Attending Note Name of Resident: Tucker Charles ATTENDING PHYSICIAN STATEMENT I saw and evaluated the patient. I reviewed the resident's note and discussed the case with the resident. I agree with the resident's findings and plan as documented with exceptions below. SUBJECTIVE: Patient seen and examined. feels better, improved pain. No new fevers, or breast pain. Tolerating diet well. OBJECTIVE: Vital Signs Period Temp Pulse Resp BP Sys/Wright Pulse Ox Last 24 Hr 97.5 F-98.4 F 76-94 16-20 98-135/58-74 100 Intake & Output 05/05/18 05/06/18 05/07/18 05/08/18 23:59 23:59 23:59 23:59 Intake Total 2550 1870 2920 1500 Balance 2550 1870 2920 1500 Weight 164 lb General: lying in bed in no acute distress Breast: left- no induration/tenderness or discharge currently Abdomen:Soft, Wanting to void, fullness in suprapubic region, no CVA tenderness , no voluntary or involuntary guarding or rigidity Extremities: no edema Active Medications Acetaminophen (Tylenol -) 650 mg PO Q4H PRN PRN Reason: FEVER Last Admin: 05/06/18 22:25 Dose: 650 mg Docusate Sodium (Colace -) 100 mg PO DAILY SHIKHA Last Admin: 05/07/18 09:58 Dose: 100 mg Enoxaparin Sodium (Lovenox -) 40 mg SQ DAILY SHIKHA Sodium Chloride (Normal Saline -) 1,000 mls @ 100 mls/hr IV ASDIR SHIKHA Last Admin: 05/08/18 01:35 Dose: 100 mls/hr Cefoxitin Sodium 2 gm/ (Dextrose) 100 mls @ 200 mls/hr IVPB Q6H-IV SHIKHA; Protocol Last Admin: 05/08/18 03:47 Dose: 200 mls/hr Vancomycin HCl (Vancomycin 1 Gm Premix -) 1 gm in 200 mls @ 166.667 mls/hr IVPB Q12H SHIKHA; Protocol Last Admin: 05/08/18 05:11 Dose: 166.667 mls/hr Ketorolac Tromethamine (Toradol Injection -) 15 mg IVPUSH Q6H PRN PRN Reason: PAIN LEVEL 7 - 10 Stop: 05/10/18 13:24 Last Admin: 05/06/18 00:13 Dose: 15 mg Pantoprazole Sodium (Protonix -) 40 mg PO BID SHIKHA Last Admin: 05/07/18 21:19 Dose: 40 mg Polyethylene Glycol (Miralax (For Daily Use) -) 17 gm PO DAILY [facility] Last Admin: 05/07/18 10:01 Dose: 17 grams Senna (Senna -) 1 tab PO BID SHIKHA Last Admin: 05/07/18 21:19 Dose: 1 tab Simethicone (Mylicon -) 80 mg PO QID PRN PRN Reason: GAS Last Admin: 05/06/18 18:27 Dose: 80 mg Laboratory Results - last 24 hr 05/07/18 05/07/18 05/07/18 07:00 07:00 07:00 WBC Cancelled Corrected WBC (auto) Cancelled RBC Cancelled Hgb Cancelled Hct Cancelled MCV Cancelled MCH Cancelled MCHC Cancelled RDW Cancelled Plt Count Cancelled MPV Cancelled Absolute Neuts (auto) Cancelled Neutrophils % Cancelled Neutrophils % (Manual) 70.0 Band Neutrophils % 0.0 Lymphocytes % Cancelled Lymphocytes % (Manual) 18.0 Monocytes % Cancelled Monocytes % (Manual) 12 H Eosinophils % Cancelled Eosinophils % (Manual) 0.0 Basophils % Cancelled Basophils % (Manual) 0.0 Myelocytes % (Man) 0 Promyelocytes % (Man) 0 Blast Cells % (Manual) 0 Nucleated RBC % 0 Cancelled Metamyelocytes 0 Hypochromia 0 Platelet Estimate Normal Cancelled Platelet Comment Cancelled Polychromasia 0 Poikilocytosis 0 Anisocytosis 0 Microcytosis 0 Macrocytosis 0 Sodium 138 Potassium 4.0 Chloride 106 Carbon Dioxide 24 Anion Gap 8 BUN 3 L Creatinine 0.6 Creat Clearance w eGFR > 60 Random Glucose 74 Calcium 8.2 L Urine Color Urine Appearance Urine pH Ur Specific [place] Urine Protein Urine Glucose (UA) Urine Ketones Urine Blood Urine Nitrite Urine Bilirubin Urine Urobilinogen Ur Leukocyte Esterase 05/07/18 05/08/18 15:00 06:20 WBC 8.0 Corrected WBC (auto) RBC 3.90 Hgb 11.6 Hct 34.7 MCV 88.8 MCH 29.8 MCHC 33.5 RDW 12.5 Plt Count 322 MPV 7.8 Absolute Neuts (auto) 4.9 Neutrophils % 62.3 Neutrophils % (Manual) Band Neutrophils % Lymphocytes % 20.3 D Lymphocytes % (Manual) Monocytes % 15.6 H Monocytes % (Manual) Eosinophils % 1.4 D Eosinophils % (Manual) Basophils % 0.4 Basophils % (Manual) Myelocytes % (Man) Promyelocytes % (Man) Blast Cells % (Manual) Nucleated RBC % 0 Metamyelocytes Hypochromia Platelet Estimate Platelet Comment Polychromasia Poikilocytosis Anisocytosis Microcytosis Macrocytosis Sodium Potassium Chloride Carbon Dioxide Anion Gap BUN Creatinine Creat Clearance w eGFR Random Glucose Calcium Urine Color Ltyellow Urine Appearance Clear Urine pH 6.0 Ur Specific [place] 1.009 Urine Protein Negative Urine Glucose (UA) Negative Urine Ketones Negative Urine Blood Negative Urine Nitrite Negative Urine Bilirubin Negative Urine Urobilinogen Negative Ur Leukocyte Esterase Negative Microbiology 05/06/18 14:45 Aspirate Gram Stain - Final 05/06/18 18:00 Aspirate MIKE Preparation - Preliminary 05/06/18 18:00 Aspirate Fungal Culture - Preliminary 05/04/18 10:34 Blood - Peripheral Venous Blood Culture - Preliminary NO GROWTH OBTAINED AFTER 72 HOURS, INCUBATION TO CONTINUE FOR 2 DAYS. 05/04/18 10:34 Blood - Peripheral Venous Blood Culture - Preliminary NO GROWTH OBTAINED AFTER 72 HOURS, INCUBATION TO CONTINUE FOR 2 DAYS. 05/06/18 14:45 Breast - Left AFB Smear Concentration - Preliminary 05/06/18 14:45 Breast - Left Mycobacterial Culture - Preliminary 05/04/18 10:34 Urine - Urine Clean Catch Urine Culture - Final NO GROWTH OBTAINED 05/05/18 02:30 Blood - Peripheral Venous Blood Parasites Smear - Final ASSESSMENT AND PLAN: 27 yof with recent Breast augmentation followed by breast reduction/liposuction surgery in [place], comes with 2months of intermittent abdominal pain, fevers. -Sepsis, From ?Left breast infection/fluid collection vs PID -ABdominal pain/Right CVA tenderness -Simple hepatic cyst -Renal hypoenhancement areas, normal Renal US -Recent breast augmentation followed by breast reduction/liposuction Plan: Fevers resolved. WBC normalized. Cefoxitin day 4. Vancomycin day 3, monitor levels. Off doxycycline. ID input noted. repeat ua neg. Renal US neg for concerns. Outpatient follow up imaging. Follow up left breat fluid aspirate cultures, gm stain noted. Blood cx/smear exam neg so far. 2D echo noted. Chlamydia/GC probe/HIV screen neg. Care Management Assistant input appreciated. Discussed with Dr. Riggins, appendix normal. Surgery input Dr. Maldonado appreciated. GI input noted. Supportive care with IVF, pain control toradol/Tylenol. Protonix DVTPPX lovenox Dispo in 24-48 hours if no new fevers or s/s concerning for infection pending cultures. Plan discussed with patient in detail, all questions answered.
[2018-05-08] MEDS: PANTOPRAZOLE 40 MG TABLET (FP) PO SCH ×2 (09:16→21:04)
[2018-05-08] MEDS: SENNOSIDES 8.6MG TABLET (FP) PO SCH ×2 (09:16→21:04)
[2018-05-08] MEDS: DOCUSATE SODIUM 100 MG CAPSULE (FP) PO SCH (09:16)
[2018-05-08] MEDS: ENOXAPARIN NA (PORCINE) 40 MG/0.4 ML DISP.SYRIN SQ SCH (09:16)
[2018-05-08] MEDS: POLYETHYLENE GLYCOL 3350 119 GM BTL PO SCH (09:17)
[2018-05-08] MEDS: ACETAMINOPHEN 325 MG TABLET (FP) PO PRN (15:22)
[2018-05-09] MEDS: ACETAMINOPHEN 325 MG TABLET (FP) PO PRN (00:41)
[2018-05-09] MEDS: CEFOXITIN SODIUM 2 GM in DEXTROSE 5%-WATER 100 ML IVPB SCH ×2 (03:20→10:19)
[2018-05-09 08:29] LABS: BASO % 0.4 % (0-2.0); EOS % 1.9 % (0-4.5); HEMATOCRIT 36.3 % (32.4-45.2); HEMOGLOBIN 12.1 GM/dL (10.7-15.3); LYMPH % 20.2 % (8-40); MCH 29.7 pg (25.7-33.7); MCHC 33.4 g/dl (32.0-36.0); MEAN CELL VOLUME 88.9 fl (80-96); MEAN PLT VOLUME 7.2 fl (7.5-11.1); MONO % 10.9 % (3.8-10.2); NEUT % 66.6 % (42.8-82.8); PLATELET COUNT 363 K/MM3 (134-434); RBC 4.08 M/mm3 (3.60-5.2); RDW 13.1 % (11.6-15.6); WHITE BLOOD COUNT 7.2 K/mm3 (4.0-10.0)
[2018-05-09 09:03] LABS: CHLORIDE 104 mmol/L (98-107); POTASSIUM 4.4 mmol/L (3.5-5.1); SODIUM 140 mmol/L (136-145)
[2018-05-09 09:22] LABS: ANION GAP 10 MMOL/L (8-16); BLOOD UREA NITROGEN 7 mg/dL (7-18); CALCIUM 8.6 mg/dL (8.5-10.1); CO2 26 mmol/L (21-32); CREATININE 0.6 mg/dL (0.55-1.02); GLUCOSE,RANDOM 76 mg/dL (74-106)
[2018-05-09] MEDS: SODIUM CHLORIDE 1,000 ML IV SCH (10:19)
[2018-05-09] MEDS: PANTOPRAZOLE 40 MG TABLET (FP) PO SCH (10:21)
[2018-05-09] MEDS: SENNOSIDES 8.6MG TABLET (FP) PO SCH (10:21)
[2018-05-09] MEDS: DOCUSATE SODIUM 100 MG CAPSULE (FP) PO SCH (10:21)
[2018-05-09] MEDS: POLYETHYLENE GLYCOL 3350 119 GM BTL PO SCH (10:23)
[2018-05-09] MEDS: ENOXAPARIN NA (PORCINE) 40 MG/0.4 ML DISP.SYRIN SQ SCH (10:24)
--- NOTE | 2018-05-09 10:28 | DS ---
Physical Exam: SUBJECTIVE: Patient seen and examined OBJECTIVE: Vital Signs Period Temp Pulse Resp BP Sys/Wright Pulse Ox Last 24 Hr 97.6 F-99.2 F 70-80 18-20 110-121/56-68 99 PHYSICAL EXAM GENERAL: The patient is awake, alert, and fully oriented, in no acute distress. HEAD: Normal with no signs of trauma. EYES: PERRL, extraocular movements intact, sclera anicteric, conjunctiva clear. ENT: Ears normal, nares patent, oropharynx clear without exudates, moist mucous membranes. NECK: Trachea midline, full range of motion, supple. LUNGS: Breath sounds equal, clear to auscultation bilaterally, no wheezes, no crackles, no accessory muscle use. HEART: Regular rate and rhythm, S1, S2 ABDOMEN: Soft, nontender, nondistended, normoactive bowel sounds, no guarding, no rebound, no hepatosplenomegaly, no masses. No right CVA or lower abdominal tenderness currently EXTREMITIES: 2+ pulses, warm, well-perfused, no edema. NEUROLOGICAL: Cranial nerves II through XII grossly intact. Normal speech, gait normal. PSYCH: Normal mood, normal affect. SKIN: Warm, dry, normal turgor, no rashes or lesions noted. Breast: clean areas of granulation tissue, Induration/tenderness/erythema resolved in 5-6 oclock position left breat LABS Laboratory Results - last 24 hr 05/09/18 05/09/18 05/09/18 07:31 08:12 08:12 WBC 7.2 RBC 4.08 Hgb 12.1 Hct 36.3 MCV 88.9 MCH 29.7 MCHC 33.4 RDW 13.1 Plt Count 363 MPV 7.2 L Absolute Neuts (auto) 4.8 Neutrophils % 66.6 Lymphocytes % 20.2 Monocytes % 10.9 H Eosinophils % 1.9 Basophils % 0.4 Nucleated RBC % 0 Sodium 140 Potassium 4.4 Chloride 104 Carbon Dioxide 26 Anion Gap 10 BUN 7 Creatinine 0.6 Creat Clearance w eGFR > 60 Random Glucose 76 Calcium 8.6 Random Vancomycin 1.15 Microbiology 05/04/18 10:34 Blood - Peripheral Venous Blood Culture - Preliminary NO GROWTH OBTAINED AFTER 96 HOURS, INCUBATION TO CONTINUE FOR 1 DAYS. 05/04/18 10:34 Blood - Peripheral Venous Blood Culture - Preliminary NO GROWTH OBTAINED AFTER 96 HOURS, INCUBATION TO CONTINUE FOR 1 DAYS. 05/06/18 14:45 Aspirate Gram Stain - Final 05/06/18 14:45 Aspirate Body Fluid Culture - Preliminary NO AEROBIC GROWTH, 24 HRS 05/06/18 18:00 Aspirate MIKE Preparation - Preliminary 05/06/18 18:00 Aspirate Fungal Culture - Preliminary 05/06/18 14:45 Breast - Left AFB Smear Concentration - Preliminary 05/06/18 14:45 Breast - Left Mycobacterial Culture - Preliminary 05/04/18 10:34 Urine - Urine Clean Catch Urine Culture - Final NO GROWTH OBTAINED 05/05/18 02:30 Blood - Peripheral Venous Blood Parasites Smear - Final CT A/p - Partially included bilateral breast implants. Focal low-attenuation density in medial segment of the left hepatic lobe, anteriorly, on axial image 40 measuring 1.8 x 1.1 cm for which correlation with ultrasound is needed to further assess its consistency. 2 focal low-attenuation density in the right kidney, of indeterminate consistency for which correlation with renal ultrasound is needed. Questionable tiny nonobstructing right renal lower pole stone measuring 2 mm. There is suggestion of a few diverticula in the sigmoid colon without evidence of acute diverticulitis. Small amount of free fluid in the cul-de-sac which is nonspecific. Focal low-attenuation density in the right and left adnexa suggestive of ovaries and probable small cysts with a partially ruptured cyst in the right ovary measuring 2 x 1 cm. Correlation with pelvis ultrasound would be helpful for further evaluation Abdomen US - A 1.7 cm nonspecific right hepatic lobe focus is seen possibly representing a cyst with a small amount of internal debris. Correlate with contrast-enhanced MRI. Two small nonspecific right renal cortical foci identified on CT cannot be appreciated on sonography. Correlation with contrast- enhanced MRI is also suggested in this regard. Transvaginal US No sonographic evidence of a tubo-ovarian abscess. Multiple bilateral subcentimeter ovarian follicles. Small amount of free fluid within the cul-de-sac. MRI abdomen - Nonspecific areas of hypoenhancement in the right upper and right lower renal pole with corresponding restricted diffusion. Findings likely represent focal nephronia/nephritis and unlikely to represent an abscess. Correlate with clinical history and urinalysis for pyelonephritis is needed. Follow-up is recommended to document resolution. 2.2 x 1.0 cm anterior right hepatic lobe simple cyst. Kidney/Renal US - Morphologically normal kidneys with no evidence of renal cysts , hydronephrosis or acute pathology. LUE Duplex - No evidence of deep venous thrombosis. Breast US - Bilateral breast implants noted. No abnormality/fluid collection seen in the right breast. Underlying the open wound in the 5 to 6:00 position of the left breast, located 10 cm from nipple, there are 2 fluid collections in the left breast one measuring 0.8 cm in the other seen measuring 0.6 cm. This is associated with focal edema and increased vascularity noted, making these findings consistent with an infection. Follow-up to resolution is recommended. Left breast FNA - IMPRESSION: Ultrasound-guided left breast aspiration x 2 performed. Pus was obtained which was sent to Bacteriology Lab for culture / sensitivity, Gram stain and AFB evaluation as requested. HOSPITAL COURSE: Date of Admission:05/04/18 Date of Discharge: 05/09/18 Minutes to complete discharge: 50 Discharge Summary Reason For Visit: ABDOMINAL PAIN/FEVER Current Active Problems Abdominal pain (Acute) Fever (Acute) Hospital Course: 27 yof with recent Breast augmentation followed by reduction/liposuction in [facility] admitted with intermittent fevers for 2 months. She was noted with fevers upto 102 in the hospital and vague abdominal symptoms in the lower and right sided abdomen. She received extensive work up including CT A/P, transvaginal/pelvic US, MRI abdomen, renal US and breast US with detailed results as above. Her breast ultrasound showed small areas of fluid collection in left breast, she US guided fine needle aspiration which showed pus. Her fluid cultures and gm stain are negative so far, and AFB/fungal cultures neg but final results pending. She was seen by Infectious disease, initially placed on cefoxitin/doxycycline for possible PID, and vancomycin was added later. She has been afebrile and with normal WBC for more than 48 hour inhouse. She is transitioned to Augmentin for 7 days per infectious disease recommendations. Her infectious workup has otherwise been negative including GC/Chlamydia probe, HIV, urinalysis/urine cultures, blood cultures and blood smear. She was also seen by plastic surgeon Dr. Levi and recommended no intervention. She was seen by gynecology Dr. Luna with no additional recommendations. Her hepatic cyst was confirmed to be simple hepatic cyst on MRI but showed abnormal areas of enhancement on upper and lower pole of kidney. She had kidney ultrasound that was negative. She had no evidence of UTI. She is advised outpatient follow up imaging for her kidney areas with her doctor. Condition: Good - Instructions Diet, Activity, Other Instructions: You were admitted with fevers and high blood count. You received multiple tests including, CT scan belly, MRI belly, vaginal/pelvic ultrasound and kidney ultrasound. Your breast ultrasound showed tiny areas of fluid collection in the left breast. Fluid was aspirated and was reported as pus. Your routine and TB cultures on the fluid are negative so far, however final results can take upto 4 weeks. It is very important that you follow up with infectious disease doctor (Dr. Meneses) in 1 week to discuss further plan. Continue antibiotic Augmentin twice daily for 1 week. Also you were seen by plastic surgeon Dr. Levi and strongly advised to follow up with her in her office or at Wound care center in [facility] (5th floor) in 1 week to discuss further plan and management of the implants. Also MRI of your belly showed possible abnormal areas over right kidney, you had a kidney ultrasound that was negative for any such areas. You will need follow up testing with your doctor in 2-3 days to check the kidneys and liver. You can follow up with your doctor or medical clinic on discharge; Contact information for medical clinic: [address] [place] [address] Please call on discharge to schedule follow up this week. Also recommend outpatient gynecology follow up (Dr. Luna saw you in the hospital). maintain a high fiber diet and can take over the counter laxatives (colace and senna) to ensure you have bowel movement every 2-3 days. Your antibiotic prescription has been sent to [facility]. Call 911 or come to ED if new fevers, worsening pain, or any new concerns noted. Referrals: Kobi Akers MD [Staff Physician] - 1 Week Hector Meneses MD [Staff Physician] - 1 Week Peng Levi MD [Staff Physician] - 1 Week Shankar Luna MD [Staff Physician] - Disposition: HOME - Home Medications Comprehensive Discharge Medication List: Ambulatory Orders Famotidine [Pepcid] 40 mg PO DAILY 05/04/18 Amoxicillin/Potassium Clav [Augmentin 875-125 Tablet] 1 each PO BID 7 Days #14 tablet 05/09/18 Docusate Sodium [Colace -] 100 mg PO BID PRN 7 Days #60 capsule 05/09/18 Sennosides [Senna] 2 tablet PO HS PRN #14 tablet 05/09/18 This patient is new to me today: No Emergency Visit: Yes ED Registration Date: 05/04/18 Care time: The patient presented to the Emergency Department on the above date and was hospitalized for further evaluation of their emergent condition. Critical Care patient: No - Discharge Referral Referred to [facility] Med [facility] No
[2018-05-09 12:09] VITALS: BP 123/74; PULSE 78; TEMP 98.2
== END 2018-05-09 15:10 | disposition home or self-care (01) | DRG 720 ==
LOC: JER 09:17 → J8W 19:15
PROVIDERS: ADMIT Internal Medicine; ATTEND Hospitalist
PROC: 0H9U3ZX Drainage of Left Breast, Percutaneous Approach, Diagnostic (ICD-10-PCS; principal; 2018-05-06)
DX: A41.9 Sepsis, unspecified organism (principal); L76.82 Other postprocedural complications of skin and subcutaneous tissue; I36.1 Nonrheumatic tricuspid (valve) insufficiency; K57.30 Diverticulosis of large intestine without perforation or abscess without bleeding; N64.89 Other specified disorders of breast; N83.8 Other noninflammatory disorders of ovary, fallopian tube and broad ligament; K59.00 Constipation, unspecified
CPT/HCPCS: 36415; 74177-TC; 74183-TC; 76641-TC-50; 76705-TC; 76775-TC; 76830-TC; 76856-TC; 76942; 80048; 80053; 81003; 81015; 83690; 84703; 85025; 85027; 87040; 87070; 87075; 87086; 87102; 87116; 87205; 87206; 87207; 87210; 87389; 87491; 87591; 93005; 93010; 93306-TC; 93971; 99285-25; G0480; J7030